=== PATIENT | male | born 1940 | race Caucasian/White ===

== ENCOUNTER → 2016-11-01 | Outpatient (CLI) | payer BC ==
[~2016-11-01] MED LIST: CALC-20 PO; LEVO112T2 PO; LISI20TA3 PO; WARF5TAB90 PO; [UNRECOGNIZED DRUG - CODE] PO
[2016-11-01 15:17] LABS: % FREE PSA 25.7 %; FREE PSA 1.24 ng/ml; PROSTATE SPECIFIC ANTIGEN 4.82 ng/ml (0.000-4.000)
== END | disposition home or self-care (01) ==
LOC: C.LAB1850 13:43
PROVIDERS: ATTEND Urology
DX: R97.20 Elevated prostate specific antigen [PSA] (principal)

== ENCOUNTER → 2017-05-11 | Outpatient (CLI) | payer BC ==
[~2017-05-11] MED LIST changes: +OPTIRAY 320 IV PRN
--- NOTE | 2017-05-11 13:24 | DIAGNOSTIC IMAGING REPORT ---
CT ABD/PELVIS IV AND ORAL CONT CLINICAL HISTORY: ANEMIA WEIGHT LOSS, ELEVATED PSA COMPARISON STUDY: None. TECHNIQUE: Following the IV administration of 94 mL of Optiray-320, CT scan of the abdomen and pelvis was performed from the lung bases to the proximal femurs. Images are reviewed in the axial, sagittal, and coronal planes. IV contrast was administered without complication. A dose lowering technique was utilized adhering to the principles of ALARA. CT DOSE: 598.92 mGycm FINDINGS: Lower chest: The heart is normal in size and configuration, without pericardial effusion. The lung bases and pleural spaces are clear. Liver: There is a 9 mm left lobe hepatic cyst. Gallbladder: Surgically absent Spleen: Normal in size and attenuation. Pancreas: Unremarkable. Adrenal glands: Unremarkable. Kidneys: There is symmetric renal cortical enhancement. The kidneys are normal in size without hydronephrosis. Bowel: There are no transition zone to indicate bowel obstruction. The appendix appears normal. There is colonic diverticulosis. No acute peridiverticular inflammatory changes are visualized. There is moderate stool present throughout the colon. Peritoneum: There is no intraperitoneal free air or abdominal ascites. Vasculature: The abdominal aorta is normal in course and caliber. Adenopathy: None. Pelvic viscera: There is mild bladder distention. Prostate is enlarged measuring 6.5 cm in diameter. Skeletal structures: There is bilateral L5 spondylolysis. There is a grade 1 spondylolisthesis of L5 on S1. IMPRESSION: 1. Prostamegaly 2. No evidence of bowel obstruction. No evidence of free air 3. Normal appendix 4. No evidence of pathologic adenopathy Electronically signed by: Wilber Rae M.D. 05/11/2017 1:23 PM Dictated Date/Time: 05/11/2017 1:16 PM
== END | disposition home or self-care (01) ==
LOC: C.CTS 10:24
PROVIDERS: ATTEND Family Medicine
DX: R63.4 Abnormal weight loss (principal); R97.20 Elevated prostate specific antigen [PSA]; D64.9 Anemia, unspecified; N40.0 Benign prostatic hyperplasia without lower urinary tract symptoms

== ENCOUNTER → 2017-05-19 | Outpatient (CLI) | payer BC ==
[~2017-05-19] MED LIST changes: -OPTIRAY 320 IV PRN
--- NOTE | 2017-05-19 13:44 | DIAGNOSTIC IMAGING REPORT ---
CHEST 2 VIEWS ROUTINE CLINICAL HISTORY: 77 years-old Male presenting with ANEMIA, WEIGHT LOSS. TECHNIQUE: PA and lateral views of the chest were obtained. COMPARISON: 08/28/2006. FINDINGS: Median sternotomy wires Lungs and pleural spaces clear. Osseous structures normal. Upper abdomen normal. IMPRESSION: 1. No acute cardiopulmonary disease. Electronically signed by: Heber Ro M.D. 05/19/2017 1:42 PM Dictated Date/Time: 05/19/2017 1:36 PM
== END | disposition home or self-care (01) ==
LOC: C.RAD 13:16
PROVIDERS: ATTEND Family Medicine
DX: D64.9 Anemia, unspecified (principal); R63.4 Abnormal weight loss

== ENCOUNTER → 2017-06-01 | Outpatient (CLI) | payer BC | END | disposition home or self-care (01) | LOC: C.PATHSPEC 18:18 | PROVIDERS: ATTEND Urology | DX: R97.20 Elevated prostate specific antigen [PSA] (principal) ==

== ENCOUNTER → 2017-06-15 | Outpatient (CLI) | payer BC ==
--- NOTE | 2017-06-15 12:27 | DIAGNOSTIC IMAGING REPORT ---
Thyroid ultrasonography CLINICAL HISTORY: Palpable neck mass COMPARISON STUDY: No previous studies for comparison. FINDINGS: The right lobe of thyroid measures 49 x 14 x 21 mm. There are 2 mid pole cysts each of which measures 6 mm in long axis. The left lobe measures 48 x 11 x 17 mm. There is a 7 mm mid pole cyst. There is a 5 mm spongiform lower pole thyroid nodule. IMPRESSION: Multinodular thyroid gland. None of the nodules meet biopsy criteria. Electronically signed by: Wilber Rae M.D. 06/15/2017 12:26 PM Dictated Date/Time: 06/15/2017 12:24 PM
== END | disposition home or self-care (01) ==
LOC: C.ULTR 11:31
PROVIDERS: ATTEND Family Medicine
DX: R22.1 Localized swelling, mass and lump, neck (principal); E04.2 Nontoxic multinodular goiter

== ENCOUNTER → 2017-07-07 | Outpatient (CLI) | payer BC ==
[~2017-07-07] MED LIST changes: +GADAVIST IV PRN
--- NOTE | 2017-07-07 10:29 | DIAGNOSTIC IMAGING REPORT ---
BRAIN COMBO CLINICAL HISTORY: HX OF MELANOMA,WEIGHT LOSS mental status change COMPARISON STUDY: No previous studies for comparison. TECHNIQUE: Utilizing a 1.5 Jeana magnet and dedicated coil, multiplanar, multiecho imaging of the brain was performed pre and postcontrast administration. IV administration of 7 mL of Gadavist contrast was uneventful. FINDINGS: Findings of mild cerebellar as well as cerebral atrophy. Moderate chronic small vessel change throughout the periventricular and deep white matter regions. Diffusion images show no significant acute ischemic event. Postcontrast images are negative for an enhancing lesion. IMPRESSION: Age-related atrophy and chronic small vessel change. No acute process. No abnormal postcontrast enhancement. The above report was generated using voice recognition software. It may contain grammatical, syntax or spelling errors. Electronically signed by: Kvng Amaro M.D. 07/07/2017 10:27 AM Dictated Date/Time: 07/07/2017 10:24 AM
== END | disposition home or self-care (01) ==
LOC: C.MRI 09:33
PROVIDERS: ATTEND Dermatology
DX: G31.1 Senile degeneration of brain, not elsewhere classified (principal); I67.9 Cerebrovascular disease, unspecified; Z87.898 Personal history of other specified conditions; R63.4 Abnormal weight loss

== ENCOUNTER 2022-09-01 14:29 | Inpatient (IN) ==
[2022-09-01] MEDS ORDERED: ADENOSINE IV SOLN 3 MG/ML 2 ML VIAL IV STA (14:46)
[2022-09-01] MEDS ORDERED: SODIUM CHLORIDE 0.9% 500 ML IV STA (14:46)
[2022-09-01] MEDS ORDERED: ONDANSETRON INJ 2 MG/ML 2 ML VIAL ONE (14:56)
[2022-09-01] MEDS: ETOMIDATE 2 MG/ML 20 ML VIAL IV ONE ×2 (15:00→15:37)
[2022-09-01 15:04] LABS: iSTAT Creatinine 0.9 mg/dl (0.6-1.3); iSTAT Ionized Calcium 1.16 mmol/l (1.12-1.32); iSTAT Potassium 4.2 mmol/L (3.3-5.0)
[2022-09-01 15:06] LABS: Basophils # (auto) 0.15 K/uL (0-0.2); Basophils % (auto) 1.2 %; Eosinophils # (auto) 0.27 K/uL (0-0.50); Eosinophils % (auto) 2.2 %; Hematocrit (blood only) 41.6 % (42.0-52.0); Immature Granulocytes # (auto) 0.15 K/uL (0.01-0.20); Immature Granulocytes % (auto) 1.2 %; Lymphocytes # (auto) 2.77 K/uL (1.2-3.4); Lymphocytes % (auto) 22.8 %; Mean Corpuscular Hemoglobin 29.4 pg (25.0-34.0); Mean Corpuscular Hgb Conc 33.7 g/dL (32.0-36.0); Mean Corpuscular Volume 87.2 fL (80.0-100.0); Mean Platelet Volume 10.5 fL (9.4-12.4); Monocytes # (auto) 0.93 K/uL (0.11-0.59); Monocytes % (auto) 7.7 %; Neutrophils # (auto) 7.87 K/uL (1.40-6.50); Neutrophils % (auto) 64.9 %; Platelet Count 268 K/uL (130-400); RDW Coefficient of Variation 13.7 % (11.5-14.5); Red Blood Count 4.77 M/uL (4.70-6.10); White Blood Count 12.14 K/ul (4.8-10.8)
--- NOTE | 2022-09-01 15:10 | Emergency Department Note ---
Impression & Plan Ventricular tachycardia, Abnormal EKG, LUCAS (dyspnea on exertion) ED Provider Note NAME: CHRIST RAYMUNDO AGE: 82 SEX: M : 1940 ARRIVES VIA: Walk-In INFORMANT: Patient, ED PROVIDER(S): Adan Avery DO CHIEF COMPLAINT: Palpitations HPI: The patient is an 82-year-old male who presented to the emergency department for an evaluation of palpitations and shortness of breath with exertion. The patient states for the last few weeks he has been noticing some shortness of breath with exertion. It occurred when he was carrying a laundry basket up stairs today while he was mowing grass he started noticing for about the last hour that he was having trouble with dizziness and near syncope. He also noted shortness of breath and palpitations. He came to the emergency department with his friend who he was helping with yard work. The patient was brought directly from triage into room 81 because of tachycardia and nausea and vomiting. The patient at this time denies having any chest pain. He had no lower extremity swelling. He states has been compliant with his outpatient medications which do include a blood thinner. ROS: See above HPI for pertinent positives & negatives. A total of 10 systems reviewed and were otherwise negative. PAST MEDICAL HISTORY: See Below PAST SURGICAL HISTORY: See Below FAMILY HISTORY: See Below SOCIAL HISTORY: See Below HOME MEDICATIONS: See Below ALLERGIES: See Below VITALS: See Below PHYSICAL EXAMINATION: GENERAL: The patient is awake and alert. He is very anxious. EYES: The conjunctivae are clear. The pupils are round and reactive. EARS, NOSE, MOUTH AND THROAT: The nose is without any evidence of any deformity. NECK: The neck is nontender and supple. RESPIRATORY: Normal respiratory effort is noted there is no evidence of wheezing rhonchi or rales CARDIOVASCULAR: Tachycardic and regular heart sounds were noted to auscultation. No murmur was noted. GASTROINTESTINAL: The abdomen is soft. Abdomen is nontender. MUSCULOSKELETAL/EXTREMITIES: There is no evidence of gross deformity full range of motion is noted in the hips and shoulders. SKIN: There is no obvious evidence of any rash. There are no petechiae, pallor or cyanosis noted. NEUROLOGIC: Patient is awake alert and oriented x3 MEDICAL DECISION MAKING: The patient is an 82-year-old male who does have a history of coronary artery disease as well as coronary bypass who presented to the emergency department for an evaluation of not feeling well. The patient was brought directly back from triage to a resuscitation room. He was hypotensive and tachycardic. He was found to be in wide-complex tachycardia. Initially he was trialed on Valsalva maneuver adenosine and IV fluids but his pressure dropped and he started having worsening nausea and vomiting. For this reason he was felt to be unstable and preparations were made to cardiovert the patient using sedation. He was given etomidate. He was monitored in usual fashion. He was cardioverted using 200 J with synchronized cardioversion. He tolerated this quite well. The patient was reevaluated multiple times. I discussed the patient's laboratory and radiographic studies with him. He was treated with aspirin as well as amiodarone in the emergency department. I discussed his condition with the on- call [facility] skidder operator. Preparations were made to transfer the patient to [facility]. Given his comorbid conditions likelihood of him needing intervention as well as possible further bypass was high. Unfortunately we are unable to accommodate the patient's transfer at this time. He will be admitted by the [facility] hospitalist group. Triage Nursing notes reviewed. Prior medical records reviewed Vital Signs: reviewed and remarkable for no significant abnormalities Differential diagnosis: Reactive airway disease, pneumonia, pneumothorax, COPD, CHF, infections, cardiac ischemia, pulmonary embolism, musculoskeletal, gastrointestinal, as well as other pathologies. ER treatment provided: See below Diagnostics interpreted by me: ECG: EKG was obtained in the emergency department. My interpretation is wide- complex tachycardia at 215 bpm. A left bundle branch block pattern was favored. Diffuse ST segment abnormalities were noted. This was compared to a tracing from April 20, 2020. Sinus rhythm has been replaced with wide-complex tachycardia. A second EKG was obtained in the emergency department after cardioversion. My interpretation is atrial paced rhythm with ventricular sensing at 72 bpm. No PVCs were noted. Diffuse ST depressions were noted. This was compared to a tracing from April 20, 2020. The ST depression is new compared to previous tracing. Cardiac Monitoring: An order was placed for continuous cardiac monitoring. The monitor shows a rate of 61 bpm with paced rhythm. Laboratory studies: As stated above and show below. Imaging studies: See below. Radiographic imaging was reviewed by myself Consultation(s): I discussed this case with Dr. Reeves who is on-call for the [facility] skidder operator group. He will evaluate the patient in the emergency department. Dr. Boucher was notified about the patient. She will evaluate the patient for the [facility] hospitalist group. ED COURSE: Procedures: Indication: Wide-complex tachycardia, unstable Verbal consent was obtained after the risks and benefits were explained, including but not limited to pain, thermal burn, allergic reaction, aspiration, airway obstruction, laryngospasm, infection, hypotension, and cardiorespiratory arrest. At this time, the risks of the procedure are less than the risks of NOT performing the procedure. A time out was taken and the correct patient and procedure identified. The patient was on 100% via NRB and end tidal CO2 monitoring prior to the procedure. Suction, airway equipment, medications, respiratory equipment, ACLS cart, and appropriate personnel were prepared prior to the initiation of the procedure. Sedation was achieved utilizing etomidate. The biphasic defibrillator was set to 200 joules of energy and synched. After confirmation of sedation and "all clear" safety check the synchronized shock was delivered. This resulted in successful conversion of the dysrhythmia back into sinus rhythm. See nursing notes for dosages and times. There were no complications and the patient recovered uneventfully from the procedure. Critical Care: I have personally spent greater than 45 minutes of critical care time in the direct management of this patient. This includes bedside care, interpretation of diagnostic studies, and testing, discussion with consultants, patient, and family members, and other required patient management activities. This 45 minutes is in excess of all separately billable procedures. Past Med/Surg History Medical History Aortic aneurysm next echo is 12/01/22>Dr. Dunham monitoring Benign prostatic hyperplasia with urinary obstruction CAD (coronary artery disease) Follows with Dr. Dunham Cardiac murmur Dupuytren's disease Erectile dysfunction GERD (gastroesophageal reflux disease) History of gastric ulcer History of GI bleed History of melanoma History of myocardial infarction 1989 Hx of cardiac pacemaker 04/2021, [facility]; F/U DR. DUNHAM, S Hyperlipidemia Hypertension Hypothyroidism Intracardiac thrombus CURRENTLY ON COUMADIN On warfarin therapy Osteoarthritis Surgical History History of arthroscopy of right knee History of cardiac catheterization 1989, DONE AT [facility] IN [place], NO STENTS--> CABG History of cholecystectomy History of colonoscopy History of esophagogastroduodenoscopy (EGD) History of hand surgery Left x 2 History of hernia repair History of melanoma excision History of partial gastrectomy History of quadruple bypass 1989, [facility] IN [place]; F/U DR. DUNHAM, [employer] [facility] History of right knee joint replacement Hx of bilateral cataract extraction Hx of cystoscopy YEARS AGO FOR HEMATURIA Family History Father No problems noted. 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 Beliefs That Will Affect Care: None Current Living Situation: Spouse Other Information That Helps Us Care for You: No Feels Safe at Home: Yes Safety Concerns: Feels Safe At This Time Assistive Devices: Denture - Upper, Denture - Lower and Glasses Allergies Allergies Allergy/AdvReac Type Severity Reaction Status Date / Time No Known Allergies Allergy Verified 09/01/22 17:31 Home Meds Home Medications Medication Instructions Recorded Confirmed amlodipine 5 mg tablet 5 mg PO QAM 07/01/19 09/01/22 multivitamin (Daily Multi-Vitamin 1 tab PO QPM 07/01/19 09/01/22 tablet) warfarin 5 mg tablet 5 mg PO 5XWK 07/01/19 09/01/22 rosuvastatin 40 mg tablet (Crestor) 40 mg PO QPM 06/03/20 09/01/22 levothyroxine 112 mcg tablet 112 mcg PO DAILYBB 05/09/21 09/01/22 (Synthroid) metoprolol succinate 50 mg 50 mg PO QPM 05/09/21 09/01/22 tablet,extended release 24 hr (Toprol XL) calcium carbonate 600 mg-vitamin 1 tab PO DAILY 09/01/22 09/01/22 D3 5 mcg (200 unit) tablet (Calcium 600 + D(3)) losartan 25 mg tablet 25 mg PO DAILY 09/01/22 09/01/22 warfarin 5 mg tablet 2.5 mg PO 2XWK 09/01/22 09/01/22 Results & Data (ED) Vital Signs Vital Signs - 24 hr 09/01/22 14:32 09/01/22 14:50 09/01/22 14:56 Temperature 36.8 C Temperature Source Temporal Artery Scan Pulse Rate 222 H 195 H Pulse Rate [Apical] Pulse Rate from SpO2 Sensor Pulse Rhythm [Apical] Respiratory Rate 20 Respiratory Effort / Characteristics Non-Labored Spontaneous Respiratory Depth Normal Respiratory Pattern Regular Blood Pressure Blood Pressure [Left Arm] Blood Pressure Mean Blood Pressure Mean [Left Arm] Pulse Oximetry 98 Oxygen Delivery Method Room Air Oxygen Flow Rate Sepsis Recent Fever Within 48 Hours No Sepsis New/Unexplained Change in Mental Status No Sepsis Action Taken by Nursing No Action Required Oxygen Flow Rate - Titration 2 Pulse Oximetry Post Tiitration 99 09/01/22 14:56 09/01/22 15:01 09/01/22 15:04 Temperature Temperature Source Pulse Rate 209 H 130 H Pulse Rate [Apical] 70 Pulse Rate from SpO2 Sensor Pulse Rhythm [Apical] Regular Respiratory Rate 16 Respiratory Effort / Characteristics Non-Labored Respiratory Depth Normal Respiratory Pattern Blood Pressure Blood Pressure [Left Arm] 127/90 Blood Pressure Mean Blood Pressure Mean [Left Arm] 102 Pulse Oximetry 100 Oxygen Delivery Method Nasal Cannula Oxygen Flow Rate 4 Sepsis Recent Fever Within 48 Hours Sepsis New/Unexplained Change in Mental Status Sepsis Action Taken by Nursing Oxygen Flow Rate - Titration Pulse Oximetry Post Tiitration 09/01/22 14:47 09/01/22 14:50 09/01/22 14:51 Temperature Temperature Source Pulse Rate 153 H 216 H 214 H Pulse Rate [Apical] Pulse Rate from SpO2 Sensor Pulse Rhythm [Apical] Respiratory Rate 18 24 18 Respiratory Effort / Characteristics Respiratory Depth Respiratory Pattern Blood Pressure Blood Pressure [Left Arm] Blood Pressure Mean Blood Pressure Mean [Left Arm] Pulse Oximetry Oxygen Delivery Method Oxygen Flow Rate Sepsis Recent Fever Within 48 Hours Sepsis New/Unexplained Change in Mental Status Sepsis Action Taken by Nursing Oxygen Flow Rate - Titration Pulse Oximetry Post Tiitration 09/01/22 14:51 09/01/22 14:55 09/01/22 14:56 Temperature Temperature Source Pulse Rate 210 H 208 H Pulse Rate [Apical] Pulse Rate from SpO2 Sensor 200 H Pulse Rhythm [Apical] Respiratory Rate 13 20 Respiratory Effort / Characteristics Respiratory Depth Respiratory Pattern Blood Pressure 70/55 L Blood Pressure [Left Arm] Blood Pressure Mean 60 Blood Pressure Mean [Left Arm] Pulse Oximetry 97 Oxygen Delivery Method Oxygen Flow Rate Sepsis Recent Fever Within 48 Hours Sepsis New/Unexplained Change in Mental Status Sepsis Action Taken by Nursing Oxygen Flow Rate - Titration Pulse Oximetry Post Tiitration 09/01/22 14:56 09/01/22 15:00 09/01/22 15:00 Temperature Temperature Source Pulse Rate 98 H Pulse Rate [Apical] Pulse Rate from SpO2 Sensor 98 H Pulse Rhythm [Apical] Respiratory Rate 20 Respiratory Effort / Characteristics Respiratory Depth Respiratory Pattern Blood Pressure 57/43 L 127/90 Blood Pressure [Left Arm] Blood Pressure Mean 47 102 Blood Pressure Mean [Left Arm] Pulse Oximetry 99 Oxygen Delivery Method Oxygen Flow Rate 4 Sepsis Recent Fever Within 48 Hours Sepsis New/Unexplained Change in Mental Status Sepsis Action Taken by Nursing Oxygen Flow Rate - Titration Pulse Oximetry Post Tiitration 09/01/22 15:05 09/01/22 15:05 09/01/22 15:10 Temperature Temperature Source Pulse Rate 74 Pulse Rate [Apical] Pulse Rate from SpO2 Sensor 74 Pulse Rhythm [Apical] Respiratory Rate 13 Respiratory Effort / Characteristics Respiratory Depth Respiratory Pattern Blood Pressure 125/80 123/79 Blood Pressure [Left Arm] Blood Pressure Mean 95 93 Blood Pressure Mean [Left Arm] Pulse Oximetry 100 Oxygen Delivery Method Oxygen Flow Rate 4 Sepsis Recent Fever Within 48 Hours Sepsis New/Unexplained Change in Mental Status Sepsis Action Taken by Nursing Oxygen Flow Rate - Titration Pulse Oximetry Post Tiitration 09/01/22 15:10 09/01/22 15:15 09/01/22 15:15 Temperature Temperature Source Pulse Rate 60 60 Pulse Rate [Apical] Pulse Rate from SpO2 Sensor 61 60 Pulse Rhythm [Apical] Respiratory Rate 18 10 L Respiratory Effort / Characteristics Respiratory Depth Respiratory Pattern Blood Pressure 115/74 Blood Pressure [Left Arm] Blood Pressure Mean 87 Blood Pressure Mean [Left Arm] Pulse Oximetry 100 100 Oxygen Delivery Method Oxygen Flow Rate 4 4 Sepsis Recent Fever Within 48 Hours Sepsis New/Unexplained Change in Mental Status Sepsis Action Taken by Nursing Oxygen Flow Rate - Titration Pulse Oximetry Post Tiitration 09/01/22 15:20 09/01/22 15:20 09/01/22 15:25 Temperature Temperature Source Pulse Rate 67 Pulse Rate [Apical] Pulse Rate from SpO2 Sensor 67 Pulse Rhythm [Apical] Respiratory Rate 16 Respiratory Effort / Characteristics Respiratory Depth Respiratory Pattern Blood Pressure 114/77 134/85 Blood Pressure [Left Arm] Blood Pressure Mean 89 101 Blood Pressure Mean [Left Arm] Pulse Oximetry 100 Oxygen Delivery Method Oxygen Flow Rate 2 Sepsis Recent Fever Within 48 Hours Sepsis New/Unexplained Change in Mental Status Sepsis Action Taken by Nursing Oxygen Flow Rate - Titration Pulse Oximetry Post Tiitration 09/01/22 15:25 09/01/22 15:30 09/01/22 15:30 Temperature Temperature Source Pulse Rate 61 60 Pulse Rate [Apical] Pulse Rate from SpO2 Sensor 60 60 Pulse Rhythm [Apical] Respiratory Rate 17 19 Respiratory Effort / Characteristics Respiratory Depth Respiratory Pattern Blood Pressure 137/78 Blood Pressure [Left Arm] Blood Pressure Mean 97 Blood Pressure Mean [Left Arm] Pulse Oximetry 100 100 Oxygen Delivery Method Oxygen Flow Rate 2 2 Sepsis Recent Fever Within 48 Hours Sepsis New/Unexplained Change in Mental Status Sepsis Action Taken by Nursing Oxygen Flow Rate - Titration Pulse Oximetry Post Tiitration 09/01/22 15:35 09/01/22 15:35 09/01/22 15:40 Temperature Temperature Source Pulse Rate 60 Pulse Rate [Apical] Pulse Rate from SpO2 Sensor 60 Pulse Rhythm [Apical] Respiratory Rate 18 Respiratory Effort / Characteristics Respiratory Depth Respiratory Pattern Blood Pressure 134/77 138/74 Blood Pressure [Left Arm] Blood Pressure Mean 96 95 Blood Pressure Mean [Left Arm] Pulse Oximetry 100 Oxygen Delivery Method Oxygen Flow Rate 2 Sepsis Recent Fever Within 48 Hours Sepsis New/Unexplained Change in Mental Status Sepsis Action Taken by Nursing Oxygen Flow Rate - Titration Pulse Oximetry Post Tiitration 09/01/22 15:40 09/01/22 15:45 09/01/22 15:45 Temperature Temperature Source Pulse Rate 68 63 Pulse Rate [Apical] Pulse Rate from SpO2 Sensor 68 64 Pulse Rhythm [Apical] Respiratory Rate 17 17 Respiratory Effort / Characteristics Respiratory Depth Respiratory Pattern Blood Pressure 135/69 Blood Pressure [Left Arm] Blood Pressure Mean 91 Blood Pressure Mean [Left Arm] Pulse Oximetry 99 100 Oxygen Delivery Method Oxygen Flow Rate 2 2 Sepsis Recent Fever Within 48 Hours Sepsis New/Unexplained Change in Mental Status Sepsis Action Taken by Nursing Oxygen Flow Rate - Titration Pulse Oximetry Post Tiitration 09/01/22 15:50 09/01/22 15:50 09/01/22 15:55 Temperature Temperature Source Pulse Rate 64 Pulse Rate [Apical] Pulse Rate from SpO2 Sensor 60 Pulse Rhythm [Apical] Respiratory Rate 17 Respiratory Effort / Characteristics Respiratory Depth Respiratory Pattern Blood Pressure 135/77 134/73 Blood Pressure [Left Arm] Blood Pressure Mean 96 93 Blood Pressure Mean [Left Arm] Pulse Oximetry 98 Oxygen Delivery Method Oxygen Flow Rate 2 Sepsis Recent Fever Within 48 Hours Sepsis New/Unexplained Change in Mental Status Sepsis Action Taken by Nursing Oxygen Flow Rate - Titration Pulse Oximetry Post Tiitration 09/01/22 15:55 09/01/22 16:00 09/01/22 16:01 Temperature Temperature Source Pulse Rate 66 61 Pulse Rate [Apical] Pulse Rate from SpO2 Sensor 66 61 Pulse Rhythm [Apical] Respiratory Rate 24 14 Respiratory Effort / Characteristics Respiratory Depth Respiratory Pattern Blood Pressure 122/77 Blood Pressure [Left Arm] Blood Pressure Mean 92 Blood Pressure Mean [Left Arm] Pulse Oximetry 100 100 Oxygen Delivery Method Oxygen Flow Rate 2 2 Sepsis Recent Fever Within 48 Hours Sepsis New/Unexplained Change in Mental Status Sepsis Action Taken by Nursing Oxygen Flow Rate - Titration Pulse Oximetry Post Tiitration 09/01/22 16:01 09/01/22 16:05 09/01/22 16:05 Temperature Temperature Source Pulse Rate 61 60 Pulse Rate [Apical] Pulse Rate from SpO2 Sensor 62 60 Pulse Rhythm [Apical] Respiratory Rate 22 15 Respiratory Effort / Characteristics Respiratory Depth Respiratory Pattern Blood Pressure 123/66 Blood Pressure [Left Arm] Blood Pressure Mean 85 Blood Pressure Mean [Left Arm] Pulse Oximetry 100 100 Oxygen Delivery Method Oxygen Flow Rate 2 2 Sepsis Recent Fever Within 48 Hours Sepsis New/Unexplained Change in Mental Status Sepsis Action Taken by Nursing Oxygen Flow Rate - Titration Pulse Oximetry Post Tiitration 09/01/22 16:10 09/01/22 16:10 09/01/22 16:15 Temperature Temperature Source Pulse Rate 61 Pulse Rate [Apical] Pulse Rate from SpO2 Sensor 60 Pulse Rhythm [Apical] Respiratory Rate 13 Respiratory Effort / Characteristics Respiratory Depth Respiratory Pattern Blood Pressure 114/67 127/65 Blood Pressure [Left Arm] Blood Pressure Mean 82 85 Blood Pressure Mean [Left Arm] Pulse Oximetry 100 Oxygen Delivery Method Oxygen Flow Rate 2 Sepsis Recent Fever Within 48 Hours Sepsis New/Unexplained Change in Mental Status Sepsis Action Taken by Nursing Oxygen Flow Rate - Titration Pulse Oximetry Post Tiitration 09/01/22 16:15 09/01/22 16:20 09/01/22 16:20 Temperature Temperature Source Pulse Rate 60 60 Pulse Rate [Apical] Pulse Rate from SpO2 Sensor 60 60 Pulse Rhythm [Apical] Respiratory Rate 16 20 Respiratory Effort / Characteristics Respiratory Depth Respiratory Pattern Blood Pressure 129/65 Blood Pressure [Left Arm] Blood Pressure Mean 86 Blood Pressure Mean [Left Arm] Pulse Oximetry 100 100 Oxygen Delivery Method Oxygen Flow Rate 2 2 Sepsis Recent Fever Within 48 Hours Sepsis New/Unexplained Change in Mental Status Sepsis Action Taken by Nursing Oxygen Flow Rate - Titration Pulse Oximetry Post Tiitration 09/01/22 16:25 09/01/22 16:25 09/01/22 16:30 Temperature Temperature Source Pulse Rate 60 Pulse Rate [Apical] Pulse Rate from SpO2 Sensor 60 Pulse Rhythm [Apical] Respiratory Rate 18 Respiratory Effort / Characteristics Respiratory Depth Respiratory Pattern Blood Pressure 119/69 121/64 Blood Pressure [Left Arm] Blood Pressure Mean 85 83 Blood Pressure Mean [Left Arm] Pulse Oximetry 99 Oxygen Delivery Method Oxygen Flow Rate 2 Sepsis Recent Fever Within 48 Hours Sepsis New/Unexplained Change in Mental Status Sepsis Action Taken by Nursing Oxygen Flow Rate - Titration Pulse Oximetry Post Tiitration 09/01/22 16:30 09/01/22 16:35 09/01/22 16:36 Temperature Temperature Source Pulse Rate 60 60 60 Pulse Rate [Apical] Pulse Rate from SpO2 Sensor 60 60 60 Pulse Rhythm [Apical] Respiratory Rate 18 17 19 Respiratory Effort / Characteristics Respiratory Depth Respiratory Pattern Blood Pressure Blood Pressure [Left Arm] Blood Pressure Mean Blood Pressure Mean [Left Arm] Pulse Oximetry 100 100 100 Oxygen Delivery Method Oxygen Flow Rate 2 2 2 Sepsis Recent Fever Within 48 Hours Sepsis New/Unexplained Change in Mental Status Sepsis Action Taken by Nursing Oxygen Flow Rate - Titration Pulse Oximetry Post Tiitration 09/01/22 16:36 09/01/22 16:40 09/01/22 16:41 Temperature Temperature Source Pulse Rate 61 61 Pulse Rate [Apical] Pulse Rate from SpO2 Sensor 60 62 Pulse Rhythm [Apical] Respiratory Rate 18 22 Respiratory Effort / Characteristics Respiratory Depth Respiratory Pattern Blood Pressure 116/71 Blood Pressure [Left Arm] Blood Pressure Mean 86 Blood Pressure Mean [Left Arm] Pulse Oximetry 100 100 Oxygen Delivery Method Oxygen Flow Rate 2 2 Sepsis Recent Fever Within 48 Hours Sepsis New/Unexplained Change in Mental Status Sepsis Action Taken by Nursing Oxygen Flow Rate - Titration Pulse Oximetry Post Tiitration 09/01/22 16:41 09/01/22 16:45 09/01/22 16:45 Temperature Temperature Source Pulse Rate 60 Pulse Rate [Apical] Pulse Rate from SpO2 Sensor 60 Pulse Rhythm [Apical] Respiratory Rate 13 Respiratory Effort / Characteristics Respiratory Depth Respiratory Pattern Blood Pressure 119/59 L 130/64 Blood Pressure [Left Arm] Blood Pressure Mean 79 86 Blood Pressure Mean [Left Arm] Pulse Oximetry 100 Oxygen Delivery Method Oxygen Flow Rate 2 Sepsis Recent Fever Within 48 Hours Sepsis New/Unexplained Change in Mental Status Sepsis Action Taken by Nursing Oxygen Flow Rate - Titration Pulse Oximetry Post Tiitration 09/01/22 16:50 09/01/22 16:50 09/01/22 16:55 Temperature Temperature Source Pulse Rate 60 60 Pulse Rate [Apical] Pulse Rate from SpO2 Sensor 59 L 60 Pulse Rhythm [Apical] Respiratory Rate 18 17 Respiratory Effort / Characteristics Respiratory Depth Respiratory Pattern Blood Pressure 112/66 Blood Pressure [Left Arm] Blood Pressure Mean 81 Blood Pressure Mean [Left Arm] Pulse Oximetry 100 100 Oxygen Delivery Method Room Air Oxygen Flow Rate 2 Sepsis Recent Fever Within 48 Hours Sepsis New/Unexplained Change in Mental Status Sepsis Action Taken by Nursing Oxygen Flow Rate - Titration Pulse Oximetry Post Tiitration 09/01/22 16:55 09/01/22 17:00 09/01/22 17:00 Temperature Temperature Source Pulse Rate 60 Pulse Rate [Apical] Pulse Rate from SpO2 Sensor 60 Pulse Rhythm [Apical] Respiratory Rate 16 Respiratory Effort / Characteristics Respiratory Depth Respiratory Pattern Blood Pressure 131/71 115/73 Blood Pressure [Left Arm] Blood Pressure Mean 91 87 Blood Pressure Mean [Left Arm] Pulse Oximetry 98 Oxygen Delivery Method Oxygen Flow Rate Sepsis Recent Fever Within 48 Hours Sepsis New/Unexplained Change in Mental Status Sepsis Action Taken by Nursing Oxygen Flow Rate - Titration Pulse Oximetry Post Tiitration 09/01/22 17:05 09/01/22 17:10 09/01/22 17:15 Temperature Temperature Source Pulse Rate 60 62 Pulse Rate [Apical] Pulse Rate from SpO2 Sensor 60 60 Pulse Rhythm [Apical] Respiratory Rate 12 20 Respiratory Effort / Characteristics Respiratory Depth Respiratory Pattern Blood Pressure 123/70 Blood Pressure [Left Arm] Blood Pressure Mean 87 Blood Pressure Mean [Left Arm] Pulse Oximetry 99 98 Oxygen Delivery Method Oxygen Flow Rate Sepsis Recent Fever Within 48 Hours Sepsis New/Unexplained Change in Mental Status Sepsis Action Taken by Nursing Oxygen Flow Rate - Titration Pulse Oximetry Post Tiitration 09/01/22 17:15 09/01/22 17:20 09/01/22 17:25 Temperature Temperature Source Pulse Rate 62 61 60 Pulse Rate [Apical] Pulse Rate from SpO2 Sensor 62 61 60 Pulse Rhythm [Apical] Respiratory Rate 14 14 19 Respiratory Effort / Characteristics Respiratory Depth Respiratory Pattern Blood Pressure Blood Pressure [Left Arm] Blood Pressure Mean Blood Pressure Mean [Left Arm] Pulse Oximetry 99 99 99 Oxygen Delivery Method Room Air Oxygen Flow Rate Sepsis Recent Fever Within 48 Hours Sepsis New/Unexplained Change in Mental Status Sepsis Action Taken by Nursing Oxygen Flow Rate - Titration Pulse Oximetry Post Tiitration 09/01/22 17:30 09/01/22 17:30 09/01/22 17:35 Temperature Temperature Source Pulse Rate 60 60 Pulse Rate [Apical] Pulse Rate from SpO2 Sensor 60 60 Pulse Rhythm [Apical] Respiratory Rate 21 14 Respiratory Effort / Characteristics Respiratory Depth Respiratory Pattern Blood Pressure 129/75 Blood Pressure [Left Arm] Blood Pressure Mean 93 Blood Pressure Mean [Left Arm] Pulse Oximetry 97 94 Oxygen Delivery Method Oxygen Flow Rate Sepsis Recent Fever Within 48 Hours Sepsis New/Unexplained Change in Mental Status Sepsis Action Taken by Nursing Oxygen Flow Rate - Titration Pulse Oximetry Post Tiitration Home Medications Current Medication List: was personally reviewed by me Laboratory Data Attestation: I reviewed the patient's lab results. 09/01/22 14:45 09/01/22 14:45 Lab Results 09/01/22 09/01/22 09/01/22 Range/Units 14:45 14:45 14:45 WBC 12.14 H (4.8-10.8) K/ul RBC 4.77 (4.70-6.10) M/uL Hgb 14.0 (14.0-18.0) g/dl POC Hgb (14.0-18.0) g/dl Hct 41.6 L (42.0-52.0) % POC Hct (42-52) % MCV 87.2 (80.0-100.0) fL MCH 29.4 (25.0-34.0) pg MCHC 33.7 (32.0-36.0) g/dL RDW Std Deviation 44.0 (36.4-46.3) fL RDW Coeff of Dov 13.7 (11.5-14.5) % Plt Count 268 (130-400) K/uL MPV 10.5 (9.4-12.4) fL Immature Gran % (Auto) 1.2 % Neut % (Auto) 64.9 % Lymph % (Auto) 22.8 % [place] % (Auto) 7.7 % Eos % (Auto) 2.2 % Baso % (Auto) 1.2 % Neut # (Auto) 7.87 H (1.40-6.50) K/uL Lymph # (Auto) 2.77 (1.2-3.4) K/uL [place] # (Auto) 0.93 H (0.11-0.59) K/uL Eos # (Auto) 0.27 (0-0.50) K/uL Baso # (Auto) 0.15 (0-0.2) K/uL Immature Gran # (Auto) 0.15 (0.01-0.20) K/uL PT 27.2 H (9.0-12.0) Seconds INR 2.6 H (0.9-1.1) APTT 36.5 H (21.0-31.0) Seconds PTT Ratio 1.3 POC Sodium (135-144) mmol/L Sodium 137 (136-145) mmol/L POC Potassium (3.3-5.0) mmol/L Potassium 4.2 (3.5-5.1) mmol/L POC Chloride (101-112) mmol/L Chloride 103 (98-107) mmol/L Carbon Dioxide 27 (21-32) mmol/L POC Total CO2 (24-31) mmol/L Anion Gap 7 (3-11) POC Anion Gap (16-25) mmol/L POC BUN (7-18) mg/dl BUN 20 (6-23) mg/dl Creatinine 0.93 (0.6-1.4) mg/dl POC Creatinine (0.6-1.3) mg/dl Est Cr Clr Drug Dosing 63.2 ml/min Est GFR ( Amer) 87.7 ml/min Est GFR (Non-Af Amer) 75.7 ml/min BUN/Creatinine Ratio 21.5 H (10-20) Glucose 136 H (70-99(Fasting)) mg/dl POC Glucose (other) (70-99) mg/dl Calcium 9.1 (8.6-10.3) mg/dl POC Ioniz Calcium Becca (1.12-1.32) mmol/l Magnesium 2.0 (1.7-2.4) mg/dl Total Bilirubin 0.6 (0.2-1.0) mg/dl AST 23 (13-39) U/L ALT 22 (7-52) U/L Alkaline Phosphatase 57 (34-104) U/L Troponin I High Sens 4.9 (0-20) pg/ml Total Protein 7.2 (6.0-8.3) gm/dl Albumin 4.4 (3.4-5.0) gm/dl Globulin 2.8 (2.5-4.0) gm/dl Albumin/Globulin Ratio 1.6 (0.9-2) TSH (0.300-4.500) uIu/ml Free T4 (0.61-1.60) ng/dl SARS-CoV-2, RNA, NAAT (NEGATIVE) 09/01/22 09/01/22 09/01/22 Range/Units 14:45 14:52 15:15 WBC (4.8-10.8) K/ul RBC (4.70-6.10) M/uL Hgb (14.0-18.0) g/dl POC Hgb 15.0 (14.0-18.0) g/dl Hct (42.0-52.0) % POC Hct 44 (42-52) % MCV (80.0-100.0) fL MCH (25.0-34.0) pg MCHC (32.0-36.0) g/dL RDW Std Deviation (36.4-46.3) fL RDW Coeff of Dov (11.5-14.5) % Plt Count (130-400) K/uL MPV (9.4-12.4) fL Immature Gran % (Auto) % Neut % (Auto) % Lymph % (Auto) % [place] % (Auto) % Eos % (Auto) % Baso % (Auto) % Neut # (Auto) (1.40-6.50) K/uL Lymph # (Auto) (1.2-3.4) K/uL [place] # (Auto) (0.11-0.59) K/uL Eos # (Auto) (0-0.50) K/uL Baso # (Auto) (0-0.2) K/uL Immature Gran # (Auto) (0.01-0.20) K/uL PT (9.0-12.0) Seconds INR (0.9-1.1) APTT (21.0-31.0) Seconds PTT Ratio POC Sodium 138 (135-144) mmol/L Sodium (136-145) mmol/L POC Potassium 4.2 (3.3-5.0) mmol/L Potassium (3.5-5.1) mmol/L POC Chloride 101 (101-112) mmol/L Chloride (98-107) mmol/L Carbon Dioxide (21-32) mmol/L POC Total CO2 26 (24-31) mmol/L Anion Gap (3-11) POC Anion Gap 16.0 (16-25) mmol/L POC BUN 20 H (7-18) mg/dl BUN (6-23) mg/dl Creatinine (0.6-1.4) mg/dl POC Creatinine 0.9 (0.6-1.3) mg/dl Est Cr Clr Drug Dosing ml/min Est GFR ( Amer) ml/min Est GFR (Non-Af Amer) ml/min BUN/Creatinine Ratio (10-20) Glucose (70-99(Fasting)) mg/dl POC Glucose (other) 137 H (70-99) mg/dl Calcium (8.6-10.3) mg/dl POC Ioniz Calcium Becca 1.16 (1.12-1.32) mmol/l Magnesium (1.7-2.4) mg/dl Total Bilirubin (0.2-1.0) mg/dl AST (13-39) U/L ALT (7-52) U/L Alkaline Phosphatase (34-104) U/L Troponin I High Sens (0-20) pg/ml Total Protein (6.0-8.3) gm/dl Albumin (3.4-5.0) gm/dl Globulin (2.5-4.0) gm/dl Albumin/Globulin Ratio (0.9-2) TSH 4.921 H (0.300-4.500) uIu/ml Free T4 1.02 (0.61-1.60) ng/dl SARS-CoV-2, RNA, NAAT NEGATIVE (NEGATIVE) Administered Medications Amiodarone HCl/Dextrose (Nexterone / D5w) 360 mg in 200 mls @ 16.667 mls/hr IV .Q12H TAQUERIA Stop: 10/01/22 21:29 Last Admin: 09/01/22 21:38 Dose: 0.5 mg/min, 16.7 mls/hr Documented By: MARK Co-signed By: AMB Levothyroxine Sodium (Levothyroxine Sodium 112 Mcg Tablet) 112 mcg PO DAILYBB TAQUERIA Stop: 10/02/22 06:29 Last Admin: 09/02/22 05:46 Dose: 112 mcg Documented By: VK Metoprolol Succinate (Metoprolol Succ 50mg Ext Rel Tab) 50 mg PO QPM TAQUERIA Stop: 10/01/22 20:59 Last Admin: 09/01/22 21:05 Dose: 50 mg Documented By: VK Multivitamins/Minerals (Cerovite Adv Formula Tab) 1 tab PO QPM TAQUERIA Stop: 10/01/22 20:59 Last Admin: 09/01/22 21:05 Dose: 1 tab Documented By: MARK Rosuvastatin Calcium (Rosuvastatin Calcium 20 Mg Tab) 40 mg PO QPM TAQUERIA Stop: 10/01/22 20:59 Last Admin: 09/01/22 21:05 Dose: 40 mg Documented By: MARK Discontinued Medications Adenosine (Adenosine Iv Soln 3 Mg/Ml 2 Ml Vial) 6 mg IV NOW STA Stop: 09/01/22 14:47 Last Admin: 09/01/22 14:53 Dose: 6 mg Documented By: MARGARET Amiodarone HCl (Amiodarone Iv Bolus & Drip) 1 each IV NOW STA; Protocol Stop: 09/01/22 15:25 Last Admin: 09/01/22 17:43 Dose: Not Given Documented By: QUEENIE Aspirin (Aspirin Chew 324 Mg) 324 mg PO NOW STA Stop: 09/01/22 15:25 Last Admin: 09/01/22 15:38 Dose: 324 mg Documented By: QUEENIE Etomidate (Etomidate 2 Mg/Ml 20 Ml Vial) Confirm Administered Dose 40 mg IV .STK-MED ONE Stop: 09/01/22 14:52 Last Admin: 09/01/22 15:37 Dose: Not Given Documented By: QUEENIE Etomidate (Etomidate 2 Mg/Ml 20 Ml Vial) 8 mg IV NOW STA Stop: 09/01/22 15:36 Last Admin: 09/01/22 15:00 Dose: 8 mg Documented By: QUEENIE Sodium Chloride (Nss) 500 mls @ 999 mls/hr IV .Q31M STA Stop: 09/01/22 15:16 Last Infusion: 09/01/22 15:45 Dose: 0 mls/hr Documented By: Admin: 09/01/22 14:55 Dose: 999 mls/hr Documented By: MARGARET Amiodarone HCl/Dextrose (Nexterone / D5w) 360 mg in 200 mls @ 33.333 mls/hr IV ONE ONE Stop: 09/01/22 21:34 Last Infusion: 09/01/22 21:49 Dose: 0 mg/min, 0 mls/hr Documented By: MARK Co-signed By: FREDI Admin: 09/01/22 15:48 Dose: 1 mg/min, 33.3 mls/hr Documented By: QUEENIE Co-signed By: ARNALDO Amiodarone HCl/Dextrose (Nexterone / D5w) 150 mg in 100 mls @ 600 mls/hr IV NOW STA Stop: 09/01/22 15:33 Last Infusion: 09/01/22 15:46 Dose: 0 mls/hr Documented By: QUEENIE Co-signed By: ARNALDO Admin: 09/01/22 15:34 Dose: 600 mls/hr Documented By: QUEENIE Co-signed By: ARNALDO Ondansetron HCl (Ondansetron Inj 2 Mg/Ml 2 Ml Vial) Confirm Administered Dose 4 mg .ROUTE .STK-MED ONE Stop: 09/01/22 14:57 Last Admin: 09/01/22 15:00 Dose: 4 mg Documented By: QUEENIE Imaging Data Attestation: I personally reviewed and interpreted this imaging study as follows: My Impression: 1 view chest x-ray was obtained in the emergency department. My interpretation is no free air, final report below. Radiologist's Impression: Chest X-Ray 09/01/22 14:47 XR chest 1V portable CLINICAL HISTORY: Dysrhythmia TECHNIQUE: Single frontal radiograph of the chest was obtained. Comparison: Comparison is made to chest radiograph 05/09/2021 FINDINGS: Median sternotomy wires are unchanged. Dual-lead pacemaker is seen. Cardiomegaly is noted. The lungs are clear. No evidence of pleural effusion or pneumothorax. IMPRESSION: No acute chest disease. ACT 112: Negative or not required by law. Electronically signed by: García Bradford M.D. 09/01/2022 3:28 PM Discharge Plan Visit Data Chief Complaint: Shortness of Breath/Dyspnea Stated Complaint: SHORTNESS OF BREATH,DIZZY ED Provider: Adan Avery Discharge Problem: Ventricular tachycardia, Abnormal EKG, LUCAS (dyspnea on exertion) Patient Disposition: Admitted As Inpatient Condition: Serious Discharge Instructions Interventions: ED Discharge Assessment Last Done: 09/01/22 19:17
[2022-09-01 15:23] LABS: Albumin Globulin Ratio 1.6 (0.9-2); Albumin Level 4.4 gm/dl (3.4-5.0); BUN Creatinine Ratio 21.5 (10-20); Bilirubin,Total 0.6 mg/dl (0.2-1.0); Calcium 9.1 mg/dl (8.6-10.3); Creatinine Clr Calc Pharmacy 63.2 ml/min; Est GFR (African American) 87.7 ml/min; Est GFR (Non-African American) 75.7 ml/min; Globulin 2.8 gm/dl (2.5-4.0); Potassium 4.2 mmol/L (3.5-5.1); Total Protein 7.2 gm/dl (6.0-8.3)
[2022-09-01] MEDS ORDERED: AMIODARONE IV BOLUS & DRIP IV STA (15:24)
[2022-09-01] MEDS ORDERED: STAT IV Infusion **Titration per Protocol STA (15:24)
[2022-09-01] MEDS ORDERED: ASPIRIN CHEW 324 MG PO STA (15:24)
[2022-09-01] MEDS ORDERED: AMIODARONE / D5W 150 MG/100 ML BAG IV STA (15:24)
[2022-09-01] MEDS ORDERED: 0.2 MICRON FILTER SET 1 EACH IV STA (15:24)
[2022-09-01 15:29] LABS: Troponin I High Sensitivity 4.9 pg/ml (0-20)
--- NOTE | 2022-09-01 15:29 | XRay Report ---
XR chest 1V portable CLINICAL HISTORY: Dysrhythmia TECHNIQUE: Single frontal radiograph of the chest was obtained. Comparison: Comparison is made to chest radiograph 05/09/2021 FINDINGS: Median sternotomy wires are unchanged. Dual-lead pacemaker is seen. Cardiomegaly is noted. The lungs are clear. No evidence of pleural effusion or pneumothorax. IMPRESSION: No acute chest disease. ACT 112: Negative or not required by law. Electronically signed by: García Bradford M.D. 09/01/2022 3:28 PM
[2022-09-01 15:33] LABS: INR 2.6 (0.9-1.1); Partial Thromboplastin Ratio 1.3; Partial Thromboplastin Time 36.5 Seconds (21.0-31.0); Prothrombin Time 27.2 Seconds (9.0-12.0)
[2022-09-01] MEDS ORDERED: AMIODARONE / D5W 360 MG/200 ML BAG IV ONE (15:35)
[2022-09-01] MEDS ORDERED: ETOMIDATE 2 MG/ML 20 ML VIAL IV STA (15:35)
[2022-09-01 15:38] LABS: Thyroid Stimulating Hormone 4.921 uIu/ml (0.300-4.500)
[2022-09-01 16:29] LABS: T4 Free Thyroxine 1.02 ng/dl (0.61-1.60)
--- NOTE | 2022-09-01 17:07 | Cardiology Consultation ---
Date of Consultation September 01, 2022 Assessment & Plan (1) Ventricular tachycardia: - Recent dyspnea on exertion, and now sustained ventricular tachycardia noted in this 82-year-old male with a longstanding history of coronary heart disease, LAD territory infarct in 1989, and CABG x4 in 1997 (details of bypass graft anatomy unknown). Patient with approximately 50 minutes of sustained ventricular tachycardia prior to receiving defibrillation in the emergency department. -He is now hemodynamically stable on an amiodarone infusion. -Patient known to have severe three-vessel coronary heart disease at time of initial cardiac catheterization in 1989 and has not had a repeat catheterization in the meantime. Recommend coronary evaluation during this hospital stay, but this is likely best performed at a tertiary center as complex PCI anticipated. After her coronary anatomy is delineated and revascularization performed if amenable, consideration will be made with regards to upgrading his device to an ICD. -Initial attempts were made to transfer the patient to [facility] since his cardiac care has been with [facility] for more than 20 years. He was accepted in [place] [facility] by [place]. Nelson Johnson, however there is no bed availability. I then received a message from our foster care case manager in the emergency department at [facility] but the patient's insurance required [facility] as the tertiary center that would be covered. I then called and discussed his case with Dr. Villatoro of cardiology at [facility] who accepted the patient in transfer, but no bed is available there either. -Plan will tentatively be for admission to the intensive care unit at [facility] with step down to PCU if ongoing stability confirmed, pending transfer the [facility]. The transfer center at [facility] brought a possibility of transferring him to [facility], but I am of the opinion that [facility] would be more ideal. -Patient received 81 mg of aspirin x4 tablets to be chewed. Continue prior to hospital treatment with amlodipine, metoprolol, losartan. Continue rosuvastatin 40 mg daily. -Most recent echocardiogram performed 10 days ago, repeat study will be performed. (2) LUCAS (dyspnea on exertion): - Patient's recent dyspnea on exertion and now arrhythmia suggest underlying progression of his coronary disease. -No angina at present. No evidence of volume overload (3) Aortic stenosis: - Mild aortic stenosis noted on recent echocardiogram, stable compared to 2020 (4) Ascending aortic aneurysm: Recent echocardiogram included aortic root measurement of 3.9, proximal ascend ing order diameter 4.2 cm. Previous echocardiogram studies included ascending aorta diameter of 4.6. A CT scan performed in 2018 included maximum ascending order diameter 4.4 cm. (5) Left ventricular mural thrombus: Patient with history of anterior, apical mural thrombus for which he is on chronic Coumadin. INR 2.6 Hold Coumadin and will allow INR to trend down. We will plan for heparin bridge when INR less than 2. Plan I spent a total of 1 hour and 55 minutes on the date of service in preparation, delivery, and documentation of the care provided to this patient, excluding any time spent in the performance of separately billed services. For the purpose of coordinating care, case discussed with Dr Avery, Dr Nelson Martinez at [facility], Dr Nugent at [facility], Dr Boucher of the hospitalist service at [facility], and Dr Springer of Critical care at [place]. Case discussed with case management. History of Present Illness History of Present Illness Nahun Sherman is an 82-year-old male seen in cardiology consultation per the request of Dr. Avery for the evaluation of ventricular tachycardia. Patient notes recent subjective dyspnea on exertion. For which she had recently been seen in the outpatient cardiology clinic at [facility] on 08/25/22. An echocardiogram had been performed on 08/22/2022 revealing a mid and distal LAD territory wall motion abnormality with akinesis of the mid and apical anterior wall, septum, apex, and apical inferior wall. The left ventricular ejection fraction was 45 to 49%. Mild aortic valve stenosis was noted. The aortic root and proximal ascending aorta are mildly enlarged with measurements of 3.9 and 4.2 cm. Compared to the previous study dating back to March,, the left ventricular wall motion and ejection fraction relatively unchanged. As was the mild aortic stenosis. The patient had undergone a nuclear stress test in 2020 that revealed a fixed anterior, septal, apical, and apical inferior wall motion abnormality without inducible ischemia, ejection fraction 50% by gated SPECT technique, that correlates relatively well with the recent echocardiogram. The patient states he was in his usual state of health today. He was mowing his neighbors grass with a self-propelled push lawnmower when just after 2 PM he felt onset of shortness of breath. He sat down and took his pulse and noted his pulse was elevated in excess of 200 bpm. He had a friend drive him to the emergency department at [facility] where EKG revealed the presence of a wide-complex tachycardia at 215 bpm. There were initial concerns at this may have been a supraventricular tachycardia with aberrant conduction. A dose of IV adenosine was administered without change in the tachycardia. With working diagnosis of sustained ventricular tachycardia, the patient then underwent defibrillation x1 with successful conversion to sinus rhythm. Repeat EKG revealed sinus rhythm with atrial pacing at [address] segment depression. Subsequent tracing performed at 1543 revealed resolution of the previously noted ST segment depression, with sinus rhythm at 66 bpm, first- degree AV block, and occasional PVCs. The patient has since been started on amiodarone infusion. At the time my frank luation with the patient's spouse and son at the bedside, the patient was awake and oriented. He was asymptomatic without symptoms of chest discomfort, or shortness of breath at the time of my assessment. The patient's dual-chamber Medtronic pacemaker was interrogated remotely with findings of a 47-minute episode of ventricular tachycardia, ventricular rates in excess of 200 bpm, that started at 2:12 PM. There was a brief termination, with onset of a repeat episode that lasted 3 minutes and 58 seconds with termination correlating with when the patient received fibrillation in the emergency department. Problem list: 1. ASCVD 1.S/p anterior myocardial infarction 1989. 2.Coronary bypass grafting 1989 x 4 [facility]. 3.History of ischemic cardiomyopathy EF 45 to 50% with expanded LAD distribution 4.History of chronic mural thrombus on anticoagulation with Coumadin. 1.Aortic stenosis 2.Ascending thoracic aortic aneurysm, maximum dimension on CT angiogram performed in 2017 4.4 cm 3.Past recurrent GI bleed with gastric outlet obstruction s/p antrectomy with vagotomy and Bill Akhtar II anastomosis 1997. 4.Hyperlipidemia. 5.Hypothyroidism 6.Sinoatrial node dysfunction with chronic ventricular ectopy status post dual- chamber pacemaker insertion April 27, 2021, Medtronic W1 0 1 Allergies Allergy/AdvReac Type Severity Reaction Status Date / Time No Known Allergies Allergy Verified 08/30/22 13:14 Home Medications Medication Instructions Recorded Confirmed Type amlodipine 5 mg tablet 5 mg PO QAM 07/01/19 08/30/22 History multivitamin (Daily Multi-Vitamin 1 tab PO QPM 07/01/19 08/30/22 History tablet) warfarin 5 mg tablet 5 mg PO QPM 07/01/19 08/30/22 History losartan 25 mg tablet 25 mg PO QAM 06/03/20 08/30/22 History rosuvastatin 40 mg tablet (Crestor) 40 mg PO QPM 06/03/20 08/30/22 History calcium carbonate 600 mg calcium 600 mg PO QPM 05/09/21 08/30/22 History (1,500 mg) tablet (Calcium) levothyroxine 112 mcg tablet 112 mcg PO QAM 05/09/21 08/30/22 History (Synthroid) metoprolol succinate 50 mg 50 mg PO QPM 05/09/21 08/30/22 History tablet,extended release 24 hr (Toprol XL) Patient History Medical History Aortic aneurysm next echo is 12/01/22>Dr. Dunham monitoring Benign prostatic hyperplasia with urinary obstruction CAD (coronary artery disease) Follows with Dr. Dunham Cardiac murmur Dupuytren's disease Erectile dysfunction GERD (gastroesophageal reflux disease) History of gastric ulcer History of GI bleed History of melanoma History of myocardial infarction 1989 Hx of cardiac pacemaker 04/2021, [facility]; F/U DR. DUNHAM, S Hyperlipidemia Hypertension Hypothyroidism Intracardiac thrombus CURRENTLY ON COUMADIN On warfarin therapy Osteoarthritis Surgical History History of arthroscopy of right knee History of cardiac catheterization 1989 - , DONE AT [facility] IN [place], NO STENTS--> CABG History of cholecystectomy History of colonoscopy History of esophagogastroduodenoscopy (EGD) History of hand surgery Left x 2 History of hernia repair History of melanoma excision History of partial gastrectomy History of quadruple bypass 1989, [facility] IN [place]; F/U DR. DUNHAM, S History of right knee joint replacement Hx of bilateral cataract extraction Hx of cystoscopy YEARS AGO FOR HEMATURIA Family History Father No problems noted. Other No family history of adverse response to anesthesia No pertinent family history in first degree relatives Denies family history of Prostate cancer Social History Smoking Status: Never smoker Second Hand Exposure: Yes (HX 30 YEARS AGO); Do You Dip or Chew Tobacco: No; Hx Alcohol Use: Yes Alcohol type: beer and wine Hx Substance Use: No Preferred Language: Macedonian Communication Ability: Effective [employer]er Required: No Beliefs That Will Affect Care: None Current Living Situation: Spouse Feels Safe at Home: Yes Assistive Devices: Denture - Upper, Denture - Lower and Glasses Review of Systems Review of Systems: All systems reviewed & are unremarkable except as noted in HPI & below Physical Exam Physical Exam: Temp Pulse Resp BP Pulse Ox O2 Del Method O2 Flow Rate 36.8 C 60 18 130/64 100 Nasal Cannula 2 09/01/22 14:32 09/01/22 16:50 09/01/22 16:50 09/01/22 16:45 09/01/22 16:50 09/01/22 15:04 09/01/22 16:50 Constitutional: WD/WN, vitals as above Eyes: PERRL, conjunctivae normal, anicteric sclerae Respiratory: normal respiratory effort, lungs clear to auscultation Cardiovascular: RRR, no murmur, no edema Gastrointestinal (Abdomen): normal bowel sounds, soft, nontender, no hepatosplenomegaly Neurologic: PERRL, EOMI, accommodation nl, no face palsy, no dysarthria Results & Data Laboratory Results Cardiac Enzymes 09/01/22 Range/Units 14:45 AST 23 (13-39) U/L Troponin I High Sens 4.9 (0-20) pg/ml Coagulation 09/01/22 Range/Units 14:45 PT 27.2 H (9.0-12.0) Seconds APTT 36.5 H (21.0-31.0) Seconds CBC 09/01/22 Range/Units 14:45 WBC 12.14 H (4.8-10.8) K/ul RBC 4.77 (4.70-6.10) M/uL Hgb 14.0 (14.0-18.0) g/dl Hct 41.6 L (42.0-52.0) % Plt Count 268 (130-400) K/uL Neut # (Auto) 7.87 H (1.40-6.50) K/uL Lymph # (Auto) 2.77 (1.2-3.4) K/uL [place] # (Auto) 0.93 H (0.11-0.59) K/uL Eos # (Auto) 0.27 (0-0.50) K/uL Baso # (Auto) 0.15 (0-0.2) K/uL Comprehensive Metabolic Panel 09/01/22 Range/Units 14:45 Sodium 137 (136-145) mmol/L Potassium 4.2 (3.5-5.1) mmol/L Chloride 103 (98-107) mmol/L Carbon Dioxide 27 (21-32) mmol/L BUN 20 (6-23) mg/dl Creatinine 0.93 (0.6-1.4) mg/dl Glucose 136 H (70-99(Fasting)) mg/dl Calcium 9.1 (8.6-10.3) mg/dl AST 23 (13-39) U/L ALT 22 (7-52) U/L Alkaline Phosphatase 57 (34-104) U/L Total Protein 7.2 (6.0-8.3) gm/dl Albumin 4.4 (3.4-5.0) gm/dl Diagnostic Findings EKG tracings as noted in the HPI. Recent echocardiogram as noted in the HPI.
--- NOTE | 2022-09-01 17:20 | History & Physical Report ---
Date of Service September 01, 2022 Assessment & Plan (1) Ventricular tachycardia: Plan: Presented with sustained ventricular tachycardia as noted on pacer interrogation to of lasted approximately 45 minutes until successful defibrillation in the ER Possibly related to known LAD territory scar versus ischemia or worsening CAD Continue amiodarone drip Monitor on telemetry in PCU Awaiting transfer to for further evaluation and likely ICD placement after possible complex PCI Keep electrolytes optimized-follow BMP and magnesium and replace as needed Continue home metoprolol (2) CAD (coronary artery disease): Plan: History of four-vessel CABG 33 years ago With recent worsening dyspnea on exertion, known ischemic cardiomyopathy with echocardiogram as an outpatient in the last 1 to 2 weeks showing EF 45-49% with anteroseptal wall motion abnormality unchanged from previous With ST depressions diffusely on ECG here shortly after defibrillation from V. tach as above Trend troponin Check echocardiogram Continue home metoprolol, losartan, rosuvastatin Holding warfarin Was given aspirin here It is unclear if he is on aspirin at home? Monitor on telemetry (3) Hx of cardiac pacemaker: Plan: Placed for sinoatrial dysfunction May need upgrade to ICD (4) Left ventricular mural thrombus: Plan: Holding chronic Coumadin for planned upcoming cardiac procedure Would give therapeutic IV heparin once INR less than 2 (5) Ascending aortic aneurysm: Plan: Recent echocardiogram in the [facility] cardiology office 1 to 2 weeks ago showed aortic root measurement 3.9 cm, proximal ascending aorta diameter 4.2 cm Follow as an outpatient Blood pressure control (6) Aortic stenosis: Plan: Mild as noted on recent outpatient echocardiogram and stable compared to 2020 Follow as an outpatient (7) Hypertension: Plan: Blood pressures are controlled Continue home amlodipine, losartan, metoprolol Plan DVT prophylaxis-Coumadin on hold but INR is therapeutic currently Disposition-admit to PCU, is excepted by Dr. Villatoro of the cardiology service at , awaiting bed. History of Present Illness Chief Complaint: Rapid heartbeat Primary Care Provider: Keith Moreno MD This patient is an 82-year-old male with a history of CAD s/p 4V CABG in 1989, HFrEF with EF 45% and known LAD territory scar, dual-chamber pacemaker placed for sinoatrial node dysfunction with chronic ventricular ectopy, mild aortic stenosis, ascending aortic aneurysm, history of left ventricular mural thrombus on chronic Coumadin, hypothyroidism, hyperlipidemia, history of GI bleed with gastric outlet obstruction s/p antrectomy with vagotomy and Billroth II anastomosis, who presents to the ER with rapid pulse rate and shortness of breath. He was using a self-propelled push lawnmower while mowing the grass today and noticed shortness of breath. He checked his carotid pulse and noted it to be over 200 bpm. He asked his friend to drive him to the hospital where he was found to be with a wide-complex tachycardia with rates in the 200s. He was initially given adenosine when there was a question of whether this was SVT with aberrant conduction or not, but then thought to be more sustained ventricular tachycardia. He then underwent defibrillation x1 with successful conversion to sinus rhythm. He was also noted to have diffuse ST segment depression on the EKG once he was in sinus rhythm. A subsequent EKG later then did show resolution of the ST segment depression, but with first-degree AV block and occasional PVCs, rates in the 60s. He was started on amiodarone drip. Attempts were made to transfer the patient to tertiary care by cardiology, but there are no beds available at [facility] at this time. His insurance does not allow him to go to [facility]. He is accepted at by Dr. Villatoro of the cardiology service. The reason for transfer is that he is expected to require a complex PCI and needs coronary evaluation and then likely ICD placement. I discussed his care with Dr. De Los Santos of cardiology at the time of admission. Allergies Allergy/AdvReac Type Severity Reaction Status Date / Time No Known Allergies Allergy Verified 09/01/22 17:31 Home Medications Medication Instructions Recorded Confirmed Type amlodipine 5 mg tablet 5 mg PO QAM 07/01/19 09/01/22 History multivitamin (Daily Multi-Vitamin 1 tab PO QPM 07/01/19 09/01/22 History tablet) warfarin 5 mg tablet 5 mg PO 5XWK 07/01/19 09/01/22 History rosuvastatin 40 mg tablet (Crestor) 40 mg PO QPM 06/03/20 09/01/22 History levothyroxine 112 mcg tablet 112 mcg PO DAILYBB 05/09/21 09/01/22 History (Synthroid) metoprolol succinate 50 mg 50 mg PO QPM 05/09/21 09/01/22 History tablet,extended release 24 hr (Toprol XL) calcium carbonate 600 mg-vitamin 1 tab PO DAILY 09/01/22 09/01/22 History D3 5 mcg (200 unit) tablet (Calcium 600 + D(3)) losartan 25 mg tablet 25 mg PO DAILY 09/01/22 09/01/22 History warfarin 5 mg tablet 2.5 mg PO 2XWK 09/01/22 09/01/22 History Past Med/Surg History Medical History Aortic aneurysm next echo is 12/01/22>Dr. Dunham monitoring Benign prostatic hyperplasia with urinary obstruction CAD (coronary artery disease) Follows with Dr. Dunham Cardiac murmur Dupuytren's disease Erectile dysfunction GERD (gastroesophageal reflux disease) History of gastric ulcer History of GI bleed History of melanoma History of myocardial infarction 1989 Hx of cardiac pacemaker 04/2021, [facility]; F/U DR. DUNHAM Jessica Hyperlipidemia Hypertension Hypothyroidism Intracardiac thrombus CURRENTLY ON COUMADIN On warfarin therapy Osteoarthritis Surgical History History of arthroscopy of right knee History of cardiac catheterization 1989, DONE AT [facility] IN [place], NO STENTS--> CABG History of cholecystectomy History of colonoscopy History of esophagogastroduodenoscopy (EGD) History of hand surgery Left x 2 History of hernia repair History of melanoma excision History of partial gastrectomy History of quadruple bypass 1989, [facility] IN [place]; F/U DR. DUNHAM Jessica History of right knee joint replacement Hx of bilateral cataract extraction Hx of cystoscopy YEARS AGO FOR HEMATURIA Family History Father No problems noted. Other No family history of adverse response to anesthesia No pertinent family history in first degree relatives Denies family history of Prostate cancer Social History Smoking Status: Never smoker Second Hand Exposure: Yes (HX 30 YEARS AGO); Do You Dip or Chew Tobacco: No; Hx Alcohol Use: Yes Alcohol type: beer and wine Hx Substance Use: No Preferred Language: Citizen Of [place] Communication Ability: Effective Electronic Equipment [employer] Required: No Beliefs That Will Affect Care: None Current Living Situation: Spouse Feels Safe at Home: Yes Assistive Devices: Denture - Upper, Denture - Lower and Glasses Review of Systems Review of Systems: All systems reviewed & are unremarkable except as noted in HPI & below Physical Exam Constitutional: WD/WN, vitals as above Eyes: PERRL, conjunctivae normal, anicteric sclerae ENMT: external ear and nose normal, oropharynx normal Neck: trachea midline, no thyromegaly Respiratory: normal respiratory effort, lungs clear to auscultation Cardiovascular: Rate/Rhythm: regular rate and regular rhythm Heart Sounds: + murmur (3/6 WAQAS at LLSB) Chest (Breasts): Chest: normal inspection of chest Gastrointestinal (Abdomen): normal bowel sounds, soft, nontender, no he patosplenomegaly Musculoskeletal: Extremities: extremities normal to inspection; no cyanosis and no clubbing Skin: no rashes, warm and dry Neurologic: moves all extremities and awake; no focal motor deficits Psychiatric: A+Ox3, euthymic affect Lymphatic: no lymphedema Results & Data Results & Data Vital Signs (Past 12 Hours) Vital Signs Temp Pulse Pulse Resp BP BP Pulse Ox 09/01/22 16:55 60 17 100 09/01/22 16:50 112/66 09/01/22 16:50 60 18 100 09/01/22 16:45 60 13 100 09/01/22 16:45 130/64 09/01/22 16:41 119/59 L 09/01/22 16:41 61 22 100 09/01/22 16:40 61 18 100 09/01/22 16:36 116/71 09/01/22 16:36 60 19 100 09/01/22 16:35 60 17 100 09/01/22 16:30 60 18 100 09/01/22 16:30 121/64 09/01/22 16:25 60 18 99 09/01/22 16:25 119/69 09/01/22 16:20 60 20 100 09/01/22 16:20 129/65 09/01/22 16:15 60 16 100 09/01/22 16:15 127/65 09/01/22 16:10 61 13 100 09/01/22 16:10 114/67 09/01/22 16:05 60 15 100 09/01/22 16:05 123/66 09/01/22 16:01 61 22 100 09/01/22 16:01 122/77 09/01/22 16:00 61 14 100 09/01/22 15:55 66 24 100 09/01/22 15:55 134/73 09/01/22 15:50 64 17 98 09/01/22 15:50 135/77 09/01/22 15:45 63 17 100 09/01/22 15:45 135/69 09/01/22 15:40 68 17 99 09/01/22 15:40 138/74 09/01/22 15:35 134/77 09/01/22 15:35 60 18 100 09/01/22 15:30 60 19 100 09/01/22 15:30 137/78 09/01/22 15:25 61 17 100 09/01/22 15:25 134/85 09/01/22 15:20 67 16 100 09/01/22 15:20 114/77 09/01/22 15:15 115/74 09/01/22 15:15 60 10 L 100 09/01/22 15:10 60 18 100 09/01/22 15:10 123/79 09/01/22 15:05 74 13 100 09/01/22 15:05 125/80 09/01/22 15:00 98 H 20 99 09/01/22 15:00 127/90 09/01/22 14:56 57/43 L 09/01/22 14:56 208 H 20 97 09/01/22 14:55 210 H 13 09/01/22 14:51 70/55 L 09/01/22 14:51 214 H 18 09/01/22 14:50 216 H 24 09/01/22 14:47 153 H 18 09/01/22 15:04 70 16 127/90 100 09/01/22 15:01 130 H 09/01/22 14:56 209 H 09/01/22 14:50 195 H 09/01/22 14:32 36.8 C 222 H 20 98 O2 Del Method O2 Flow Rate 09/01/22 16:55 Room Air 09/01/22 16:50 09/01/22 16:50 2 09/01/22 16:45 2 09/01/22 16:45 09/01/22 16:41 09/01/22 16:41 2 09/01/22 16:40 2 09/01/22 16:36 09/01/22 16:36 2 09/01/22 16:35 2 09/01/22 16:30 2 09/01/22 16:30 09/01/22 16:25 2 09/01/22 16:25 09/01/22 16:20 2 09/01/22 16:20 09/01/22 16:15 2 09/01/22 16:15 09/01/22 16:10 2 09/01/22 16:10 09/01/22 16:05 2 09/01/22 16:05 09/01/22 16:01 2 09/01/22 16:01 09/01/22 16:00 2 09/01/22 15:55 2 09/01/22 15:55 09/01/22 15:50 2 09/01/22 15:50 09/01/22 15:45 2 09/01/22 15:45 09/01/22 15:40 2 09/01/22 15:40 09/01/22 15:35 09/01/22 15:35 2 09/01/22 15:30 2 09/01/22 15:30 09/01/22 15:25 2 09/01/22 15:25 09/01/22 15:20 2 09/01/22 15:20 09/01/22 15:15 09/01/22 15:15 4 09/01/22 15:10 4 09/01/22 15:10 09/01/22 15:05 4 09/01/22 15:05 09/01/22 15:00 4 09/01/22 15:00 09/01/22 14:56 09/01/22 14:56 09/01/22 14:55 09/01/22 14:51 09/01/22 14:51 09/01/22 14:50 09/01/22 14:47 09/01/22 15:04 Nasal Cannula 4 09/01/22 15:01 09/01/22 14:56 09/01/22 14:50 09/01/22 14:32 Room Air Laboratory Results CBC, CMP, troponin, INR, magnesium, TSH and free T4 all reviewed 05/25/23 05/25/23 05/25/23 Range/Units 15:15 14:52 14:45 WBC (4.8-10.8) K/ul RBC (4.70-6.10) M/uL Hgb (14.0-18.0) g/dl POC Hgb 15.0 (14.0-18.0) g/dl Hct (42.0-52.0) % POC Hct 44 (42-52) % MCV (80.0-100.0) fL MCH (25.0-34.0) pg MCHC (32.0-36.0) g/dL RDW Std Deviation (36.4-46.3) fL RDW Coeff of Dov (11.5-14.5) % Plt Count (130-400) K/uL MPV (9.4-12.4) fL Immature Gran % (Auto) % Neut % (Auto) % Lymph % (Auto) % Sanders % (Auto) % Eos % (Auto) % Baso % (Auto) % Neut # (Auto) (1.40-6.50) K/uL Lymph # (Auto) (1.2-3.4) K/uL Sanders # (Auto) (0.11-0.59) K/uL Eos # (Auto) (0-0.50) K/uL Baso # (Auto) (0-0.2) K/uL Immature Gran # (Auto) (0.01-0.20) K/uL PT (9.0-12.0) Seconds INR (0.9-1.1) APTT (21.0-31.0) Seconds PTT Ratio POC Sodium 138 (135-144) mmol/L Sodium (136-145) mmol/L POC Potassium 4.2 (3.3-5.0) mmol/L Potassium (3.5-5.1) mmol/L POC Chloride 101 (101-112) mmol/L Chloride (98-107) mmol/L Carbon Dioxide (21-32) mmol/L POC Total CO2 26 (24-31) mmol/L Anion Gap (3-11) POC Anion Gap 16.0 (16-25) mmol/L POC BUN 20 H (7-18) mg/dl BUN (6-23) mg/dl Creatinine (0.6-1.4) mg/dl POC Creatinine 0.9 (0.6-1.3) mg/dl Est Cr Clr Drug Dosing ml/min Est GFR ( Amer) ml/min Est GFR (Non-Af Amer) ml/min BUN/Creatinine Ratio (10-20) Glucose (70-99(Fasting)) mg/dl POC Glucose (other) 137 H (70-99) mg/dl Calcium (8.6-10.3) mg/dl POC Ioniz Calcium Becca 1.16 (1.12-1.32) mmol/l Magnesium (1.7-2.4) mg/dl Total Bilirubin (0.2-1.0) mg/dl AST (13-39) U/L ALT (7-52) U/L Alkaline Phosphatase (34-104) U/L Troponin I High Sens (0-20) pg/ml Total Protein (6.0-8.3) gm/dl Albumin (3.4-5.0) gm/dl Globulin (2.5-4.0) gm/dl Albumin/Globulin Ratio (0.9-2) TSH 4.921 H (0.300-4.500) uIu/ml Free T4 1.02 (0.61-1.60) ng/dl SARS-CoV-2, RNA, NAAT NEGATIVE (NEGATIVE) 09/01/22 09/01/22 09/01/22 Range/Units 14:45 14:45 14:45 WBC 12.14 H (4.8-10.8) K/ul RBC 4.77 (4.70-6.10) M/uL Hgb 14.0 (14.0-18.0) g/dl POC Hgb (14.0-18.0) g/dl Hct 41.6 L (42.0-52.0) % POC Hct (42-52) % MCV 87.2 (80.0-100.0) fL MCH 29.4 (25.0-34.0) pg MCHC 33.7 (32.0-36.0) g/dL RDW Std Deviation 44.0 (36.4-46.3) fL RDW Coeff of Dov 13.7 (11.5-14.5) % Plt Count 268 (130-400) K/uL MPV 10.5 (9.4-12.4) fL Immature Gran % (Auto) 1.2 % Neut % (Auto) 64.9 % Lymph % (Auto) 22.8 % Sanders % (Auto) 7.7 % Eos % (Auto) 2.2 % Baso % (Auto) 1.2 % Neut # (Auto) 7.87 H (1.40-6.50) K/uL Lymph # (Auto) 2.77 (1.2-3.4) K/uL Sanders # (Auto) 0.93 H (0.11-0.59) K/uL Eos # (Auto) 0.27 (0-0.50) K/uL Baso # (Auto) 0.15 (0-0.2) K/uL Immature Gran # (Auto) 0.15 (0.01-0.20) K/uL PT 27.2 H (9.0-12.0) Seconds INR 2.6 H (0.9-1.1) APTT 36.5 H (21.0-31.0) Seconds PTT Ratio 1.3 POC Sodium (135-144) mmol/L Sodium 137 (136-145) mmol/L POC Potassium (3.3-5.0) mmol/L Potassium 4.2 (3.5-5.1) mmol/L POC Chloride (101-112) mmol/L Chloride 103 (98-107) mmol/L Carbon Dioxide 27 (21-32) mmol/L POC Total CO2 (24-31) mmol/L Anion Gap 7 (3-11) POC Anion Gap (16-25) mmol/L POC BUN (7-18) mg/dl BUN 20 (6-23) mg/dl Creatinine 0.93 (0.6-1.4) mg/dl POC Creatinine (0.6-1.3) mg/dl Est Cr Clr Drug Dosing 63.2 ml/min Est GFR ( Amer) 87.7 ml/min Est GFR (Non-Af Amer) 75.7 ml/min BUN/Creatinine Ratio 21.5 H (10-20) Glucose 136 H (70-99(Fasting)) mg/dl POC Glucose (other) (70-99) mg/dl Calcium 9.1 (8.6-10.3) mg/dl POC Ioniz Calcium Becca (1.12-1.32) mmol/l Magnesium 2.0 (1.7-2.4) mg/dl Total Bilirubin 0.6 (0.2-1.0) mg/dl AST 23 (13-39) U/L ALT 22 (7-52) U/L Alkaline Phosphatase 57 (34-104) U/L Troponin I High Sens 4.9 (0-20) pg/ml Total Protein 7.2 (6.0-8.3) gm/dl Albumin 4.4 (3.4-5.0) gm/dl Globulin 2.8 (2.5-4.0) gm/dl Albumin/Globulin Ratio 1.6 (0.9-2) TSH (0.300-4.500) uIu/ml Free T4 (0.61-1.60) ng/dl SARS-CoV-2, RNA, NAAT (NEGATIVE) Diagnostic Findings Chest x-ray reviewed Chest X-Ray 09/01/22 14:47 XR chest 1V portable CLINICAL HISTORY: Dysrhythmia TECHNIQUE: Single frontal radiograph of the chest was obtained. Comparison: Comparison is made to chest radiograph 05/09/2021 FINDINGS: Median sternotomy wires are unchanged. Dual-lead pacemaker is seen. Cardiomegaly is noted. The lungs are clear. No evidence of pleural effusion or pneumothorax. IMPRESSION: No acute chest disease. ACT 112: Negative or not required by law. Electronically signed by: García Bradford M.D. 09/01/2022 3:28 PM Code Status & VTE Plan Code Status FULL CODE VTE Prophylaxis Plan VTE Prophylaxis will be ordered: Yes PG Care Time/CCT Total # of Minutes Spent Total Time Spent with Patient: Total time spent is greater than 50% in coordination of care (as documented) at patient's floor/unit and/or counseling patient: Coding Level of Care Code 65875 INT INP/OBS CARE 3/75MIN Diagnoses Ventricular tachycardia I47.20 CAD (coronary artery disease) I25.10 Hx of cardiac pacemaker Z95.0 Left ventricular mural thrombus I51.3 Ascending aortic aneurysm I71.21 Aortic stenosis I35.0 Hypertension I10
[2022-09-01] MEDS ORDERED: MoRPHine SULFATE 2 MG/ML CARP IV PRN (20:19)
[2022-09-01] MEDS ORDERED: NITROGLYCERIN SL 0.4 MG/TAB TAB SL PRN (20:19)
[2022-09-01] MEDS ORDERED: ACETAMINOPHEN 325 MG TAB PO PRN (20:19)
[2022-09-01] MEDS ORDERED: CEROVITE ADV FORMULA TAB PO SCH (21:00)
[2022-09-01] MEDS ORDERED: ROSUVASTATIN CALCIUM 20 MG TAB PO SCH (21:00)
[2022-09-01] MEDS ORDERED: METOPROLOL SUCC 50MG EXT REL TAB PO SCH (21:00)
[2022-09-01] MEDS: AMIODARONE / D5W 360 MG/200 ML BAG IV SCH (21:38)
[2022-09-02 04:51] LABS: Basophils # (auto) 0.08 K/uL (0-0.2); Basophils % (auto) 1.3 %; Eosinophils % (auto) 4.7 %; Hematocrit (blood only) 37.4 % (42.0-52.0); Hemoglobin 12.7 g/dl (14.0-18.0); Immature Granulocytes # (auto) 0.01 K/uL (0.01-0.20); Immature Granulocytes % (auto) 0.2 %; Lymphocytes # (auto) 1.73 K/uL (1.2-3.4); Lymphocytes % (auto) 27.2 %; Mean Corpuscular Hemoglobin 29.5 pg (25.0-34.0); Mean Corpuscular Volume 86.8 fL (80.0-100.0); Mean Platelet Volume 10.5 fL (9.4-12.4); Monocytes # (auto) 0.63 K/uL (0.11-0.59); Monocytes % (auto) 9.9 %; Neutrophils # (auto) 3.61 K/uL (1.40-6.50); Neutrophils % (auto) 56.7 %; Platelet Count 204 K/uL (130-400); RDW Coefficient of Variation 13.8 % (11.5-14.5); RDW Standard Deviation 44.6 fL (36.4-46.3); Red Blood Count 4.31 M/uL (4.70-6.10); White Blood Count 6.36 K/ul (4.8-10.8)
[2022-09-02 05:08] LABS: BUN Creatinine Ratio 16.7 (10-20); Calcium 8.8 mg/dl (8.6-10.3); Creatinine Clr Calc Pharmacy 60.2 ml/min; Est GFR (African American) 91.2 ml/min; Est GFR (Non-African American) 78.7 ml/min; Potassium 4.1 mmol/L (3.5-5.1)
[2022-09-02 05:17] LABS: INR 2.6 (0.9-1.1); Prothrombin Time 27.2 Seconds (9.0-12.0)
[2022-09-02] MEDS ORDERED: LEVOTHYROXINE SODIUM 112 MCG TABLET PO SCH (06:30)
--- NOTE | 2022-09-02 07:14 | Hospitalist Progress Note ---
Date of Service September 02, 2022 Assessment & Plan (1) Ventricular tachycardia: Plan: Presented with sustained ventricular tachycardia as noted on pacer interrogation to of lasted approximately 45 minutes until successful defibrillation in the ER Possibly related to known LAD territory scar versus ischemia or worsening CAD Continue amiodarone drip Monitor on telemetry in PCU Awaiting transfer to [facility] for further evaluation and likely ICD placement after possible complex PCI Keep electrolytes optimized-follow BMP and magnesium and replace as needed Continue home metoprolol (2) CAD (coronary artery disease): Plan: History of four-vessel CABG 33 years ago With recent worsening dyspnea on exertion, known ischemic cardiomyopathy with echocardiogram as an outpatient in the last 1 to 2 weeks showing EF 45-49% with anteroseptal wall motion abnormality unchanged from previous With ST depressions diffusely on ECG here shortly after defibrillation from V. tach as above Troponin peaked at 1200, trending down Echo with thinning of the anteroseptal. Mild concentric LVH. . There is a moderate-sized apical, septal, and anteroseptal wall motion abnormality with akinesis to the kinesis of the segments. EF= 30-35%. Aortic valve is moderately calcified. Mild/moderate . Mild mitral regurgitation is present. Grade 1 diastolic dysfunction noted. Continue home metoprolol, losartan, rosuvastatin Holding warfarin Aspirin added with Protonix Monitor on telemetry (3) Hx of cardiac pacemaker: Plan: Placed for sinoatrial dysfunction May need upgrade to ICD (4) Left ventricular mural thrombus: Plan: Holding chronic Coumadin for planned upcoming cardiac procedure Would give therapeutic IV heparin once INR less than 2 (5) Ascending aortic aneurysm: Plan: Recent echocardiogram in the [facility] cardiology office 1 to 2 weeks ago showed aortic root measurement 3.9 cm, proximal ascending aorta diameter 4.2 cm Follow as an outpatient Blood pressure control (6) Aortic stenosis: Plan: Mild as noted on recent outpatient echocardiogram and stable compared to 2020 Follow as an outpatient (7) Hypertension: Plan: Blood pressures are controlled Continue home amlodipine, losartan, metoprolol Plan DVT prophylaxis-Coumadin on hold but INR is therapeutic currently Disposition-admit to PCU, is excepted by Dr. Villatoro of the cardiology service at [facility], awaiting bed. Admission and Anticipated Discharge Date Admission Date: September 01, 2022 Subjective Doing well this morning no complaints. States that he feels as though he is in his normal state of health. Denies chest pain, dyspnea. Review of Systems Review of Systems: As per above Physical Exam Physical Exam: Constitutional: well-appearing, no acute distress HEENT: NCAT, no conjunctival injection CV: regular rhythm, no murmur appreciated, extremities well-perfused, no LE edema Resp: CTABL, no wheezes/rales/rhonchi appreciated, no increased work of breathing MSK: no gross deformities appreciated Skin: warm, dry, no rash appreciated Neuro: alert, oriented, no focal neurologic deficit appreciated Results & Data Results & Data Vital Signs (Past 12 Hours) Vital Signs Temp Pulse Pulse Resp BP BP Pulse Ox 09/02/22 03:11 36.5 C 70 18 115/69 99 09/02/22 00:46 60 09/01/22 23:16 36.4 C L 63 18 101/58 L 97 09/01/22 21:00 61 17 94 09/01/22 20:01 60 19 99 09/01/22 20:01 137/79 09/01/22 20:00 60 15 97 09/01/22 19:40 131/78 09/01/22 19:40 65 22 98 09/01/22 19:36 62 12 09/01/22 19:50 62 09/01/22 19:15 60 17 97 O2 Del Method 09/02/22 03:11 Room Air 09/02/22 00:46 09/01/22 23:16 Room Air 09/01/22 21:00 09/01/22 20:01 09/01/22 20:01 09/01/22 20:00 Room Air 09/01/22 19:40 09/01/22 19:40 09/01/22 19:36 09/01/22 19:50 09/01/22 19:15 Resident Activity Tracking Resident Involvement: Resident Care Provided Care Provided: Adult Hospital Medicine
--- NOTE | 2022-09-02 07:48 | Electrocardiogram Report ---
Test Reason : Blood Pressure : / mmHG Vent. Rate : 215 BPM Atrial Rate : 000 BPM P-R Int : 000 ms QRS Dur : 100 ms QT Int : 228 ms P-R-T Axes : 000 106 -88 degrees QTc Int : 431 ms Supraventricular tachycardia Rightward axis Anteroseptal infarct (cited on or before 19-NOV-1997) Abnormal ECG When compared with ECG of 20-APR-2020 14:55, Supraventricular tachycardia has replaced Sinus bradycardia Vent. rate has increased by 162 bpm Confirmed by Justin Cramer ([id number]) on 09/02/2022 7:47:51 AM Referred By: REFERRED SELF Confirmed By:Justin Cramer
--- NOTE | 2022-09-02 07:50 | Electrocardiogram Report ---
Test Reason : Blood Pressure : / mmHG Vent. Rate : 072 BPM Atrial Rate : 072 BPM P-R Int : 276 ms QRS Dur : 100 ms QT Int : 386 ms P-R-T Axes : 067 -43 -45 degrees QTc Int : 422 ms Atrial-paced rhythm with prolonged AV conduction Left axis deviation RSR' or QR pattern in V1 suggests right ventricular conduction delay Marked ST abnormality, possible lateral subendocardial injury Abnormal ECG When compared with ECG of 01-SEP-2022 14:45, Electronic atrial pacemaker has replaced Sinus rhythm Vent. rate has decreased BY 143 BPM RSR' pattern in V1 is now Present Criteria for Anteroseptal infarct are no longer Present ST now depressed in Lateral leads Confirmed by Justin Cramer ([id number]) on 09/02/2022 7:49:49 AM Referred By: REFERRED SELF Confirmed By:Justin Cramer
--- NOTE | 2022-09-02 07:54 | Electrocardiogram Report ---
Test Reason : Blood Pressure : / mmHG Vent. Rate : 066 BPM Atrial Rate : 063 BPM P-R Int : 236 ms QRS Dur : 102 ms QT Int : 432 ms P-R-T Axes : 067 -45 024 degrees QTc Int : 452 ms Atrial-paced rhythm with prolonged AV conduction with occasional Premature ventricular complexes Left axis deviation Nonspecific ST and T wave abnormality Abnormal ECG When compared with ECG of 01-SEP-2022 15:02, Premature ventricular complexes are now Present Confirmed by Justin Cramer ([id number]) on 09/02/2022 7:53:39 AM Referred By: REFERRED SELF Confirmed By:Justin Cramer
[2022-09-02] MEDS: AMIODARONE / D5W 360 MG/200 ML BAG IV SCH ×2 (08:36→19:26)
[2022-09-02] MEDS ORDERED: LOSARTAN POTASSIUM 25 MG TAB PO SCH (09:00)
[2022-09-02] MEDS ORDERED: amLODIPine BESYLATE 5 MG TAB PO SCH (09:00)
[2022-09-02] MEDS ORDERED: CALCIUM 600MG + VIT D 400 IU TAB PO SCH (09:00)
--- NOTE | 2022-09-02 09:46 | Cardiology Progress Note ---
Date of Service September 02, 2022 Assessment & Plan (1) Ventricular tachycardia: Plan: - Recent dyspnea on exertion, and now sustained ventricular tachycardia noted in this 82-year-old male with a longstanding history of coronary heart disease, LAD territory infarct in 1989, and CABG x4 in 1997 (details of bypass graft anatomy unknown). Patient with approximately 50 minutes of sustained ventricular tachycardia prior to receiving Synchronized cardioversion in the emergency department on 09/01/2022 at 1459 with successful conversion to sinus rhythm in the emergency department. -He is now hemodynamically stable on an amiodarone infusion.Liver function test within normal limits. TSH 4.921, acceptable.Screening chest x-ray without pulmonary abnormality with regards to baseline for amiodarone surveillance. -An echocardiogram was performed this morning 09/02/2022 and interpreted independently. There is thinning of the anteroseptum. Mild concentric left ventricular hypertrophy is otherwise noted. There is a moderate-sized apical, septal, and anteroseptal wall motion abnormality with akinesis to the kinesis of the segments. The left ventricular systolic function is mildly reduced with a left ventricular ejection fraction in the range of 30-35%. Aortic valve is moderately calcified. Mild to moderate aortic valve stenosis is present with peak CW velocity just under 3 m/s. Mild mitral regurgitation is present. Grade 1 diastolic dysfunction noted. Compared to the outpatient echocardiogram performed 08/22/2022 (which had also been interpreted by the undersigned) the left anterior descending coronary artery territory wall motion abnormality is relatively unchanged. Ultrasound contrast was administered at the time of the study performed today, and the images with contrast demonstrate LVEF in the range of 30 to 35% as compared to 40 to 45% on 08/22/2022 (no contrast at that time). -Patient known to have severe three-vessel coronary heart disease at time of initial cardiac catheterization in 1989 and has not had a repeat catheterization in the meantime. -Has long standing history of WA, LAD territory scar dating back to 1989. -Recommend coronary evaluation during this hospital stay, but this is likely best performed at a tertiary center as complex PCI anticipated. After her coronary anatomy is delineated and revascularization performed if amenable, consideration will be made with regards to upgrading his device to an ICD. -Initial attempts were made to transfer the patient to [facility] since his cardiac care has been with [facility] for more than 20 years. He was accepted in transfer to [facility] by Dr. Nelson Johnson, however there is no bed availability. I then received a message from our medical case manager in the emergency department at [facility] but the patient's insurance required [facility] as the tertiary center that would be covered. I then called and discussed his case with Dr. Jadon Villatoro of cardiology at [facility] who accepted the patient in transfer, but no bed is available there either. -Patient is on chronic Coumadin for history of LV mural thrombus. He is not on aspirin due to history of past recurrent GI bleed with gastric outlet obstruction s/p antrectomy with vagotomy and Bill Akhtar II anastomosis 1997. -Will add aspirin 81 mg EC daily, along with protonix 40 mg PO daily. -Patient is on IV amiodarone infusion at 0.5 mg /min, will add oral amiodarone as well and will titrate metoprolol succinate from 50 mg daily to 75 mg daily. -Continue amlodipine 5 mg daily for now for antianginal effect (low LVEF noted), continue Rosuvastatin 40 mg daily. -Start Entresto. (2) Ischemic cardiomyopathy: Plan: - recent LUCAS. Decline in LVEF noted as summarized above compared to prior studies dating back to 2017. (3) LUCAS (dyspnea on exertion): Plan: - Patient's recent dyspnea on exertion and now arrhythmia suggest underlying progression of his coronary disease. -No angina at present. No evidence of volume overload (4) Aortic stenosis: Plan: - Mild aortic stenosis noted on recent echocardiogram, stable compared to 2020 (5) Ascending aortic aneurysm: Plan: Recent echocardiogram included aortic root measurement of 3.9, proximal ascending order diameter 4.2 cm. Previous echocardiogram studies included ascending aorta diameter of 4.6. A CT scan performed in 2018 included maximum ascending order diameter 4.4 cm. (6) Left ventricular mural thrombus: Plan: Patient with history of anterior, apical mural thrombus for which he is on chronic Coumadin. INR 2.6 on 09/01 and again on 09/02 No thrombus noted on echo today , 09/02/22. Hold Coumadin and will allow INR to trend down. We will plan for heparin bridge when INR less than 2. Plan Disposition: await transfer to [facility] pending bed availability. I called the transfer center at 9 am, to express my concerns of prioritizing his bed assignment and they are aware . Number to the unit where pt is located was provided. Case discussed with Dr Holden of Hospital service for the purpose of coordinating care. Transfer paperwork completed (a second time since the paperwork completed yesterday in the emergency room did not make it to the inpatient unit). Pacemaker interrogation data also printed a second time since that did not make it to the patient's outpatient chart. We will have a disc of the patient's echocardiogram made to provide at time of transfer. I spent a total of 64 minutes on the date of service in preparation, delivery, and documentation of the care provided to this patient, excluding any time spent in the performance of separately billed services. Admission and Anticipated Discharge Date Admission Date: September 01, 2022 Subjective Patient seen in cardiology follow-up having presented with sustained ventricular tachycardia on 09/01/2022. Patient is currently in room 109 in the first floor ICU as a telemetry overflow patient. Denies chest discomfort or shortness of breath. He is conversant and has normal cognition. Telemetry reveals sinus rhythm with atrial pacing in the 60s with occasional isolated PVCs. There has been no recurrence of the previously noted tachycardia since he had undergone cardioversion yesterday at 09/01/2022 at 1459 in the emergency department. Review of Systems Review of Systems: All systems reviewed & are unremarkable except as noted in HPI & below Cardiovascular: Additional Comments: Recent dyspnea on exertion over the last month. Presenting symptom on 09/01/2022 with his dyspnea and elevated heart rate. Physical Exam Physical Exam: Temp Pulse Resp BP Pulse Ox O2 Del Method O2 Flow Rate 36.6 C 65 16 132/84 98 Room Air 2 09/02/22 08:00 09/02/22 09:09 09/02/22 09:09 09/02/22 09:09 09/02/22 09:09 09/02/22 09:09 09/01/22 16:50 Constitutional: WD/WN, vitals as above Eyes: PERRL, conjunctivae normal, anicteric sclerae Respiratory: normal respiratory effort, lungs clear to auscultation Cardiovascular: RRR, no murmur, no edema Gastrointestinal (Abdomen): normal bowel sounds, soft, nontender, no hepatosplenomegaly Neurologic: PERRL, EOMI, accommodation nl, no face palsy, no dysarthria Results & Data Vital Signs (Past 12 Hours) Vital Signs Temp Pulse Pulse Resp BP BP Pulse Ox 09/02/22 09:09 65 16 132/84 98 09/02/22 08:29 60 16 108/74 98 09/02/22 08:00 61 09/02/22 08:00 36.6 C 09/02/22 07:01 61 20 117/73 97 09/02/22 03:11 36.5 C 70 18 115/69 99 09/02/22 00:46 60 09/01/22 23:16 36.4 C L 63 18 101/58 L 97 O2 Del Method 09/02/22 09:09 Room Air 09/02/22 08:29 Room Air 09/02/22 08:00 09/02/22 08:00 09/02/22 07:01 Room Air 09/02/22 03:11 Room Air 09/02/22 00:46 09/01/22 23:16 Room Air Laboratory Results Cardiac Enzymes 09/01/22 09/01/22 09/02/22 Range/Units 14:45 20:55 04:31 AST 23 (13-39) U/L Troponin I High Sens 4.9 1297.3 H* D 1091.4 H* (0-20) pg/ml Coagulation 09/01/22 09/02/22 Range/Units 14:45 04:31 PT 27.2 H 27.2 H (9.0-12.0) Seconds APTT 36.5 H (21.0-31.0) Seconds CBC 09/01/22 09/02/22 Range/Units 14:45 04:31 WBC 12.14 H 6.36 (4.8-10.8) K/ul RBC 4.77 4.31 L (4.70-6.10) M/uL Hgb 14.0 12.7 L (14.0-18.0) g/dl Hct 41.6 L 37.4 L (42.0-52.0) % Plt Count 268 204 (130-400) K/uL Neut # (Auto) 7.87 H 3.61 (1.40-6.50) K/uL Lymph # (Auto) 2.77 1.73 (1.2-3.4) K/uL Taliaferro # (Auto) 0.93 H 0.63 H (0.11-0.59) K/uL Eos # (Auto) 0.27 0.30 (0-0.50) K/uL Baso # (Auto) 0.15 0.08 (0-0.2) K/uL Comprehensive Metabolic Panel 09/01/22 09/02/22 Range/Units 14:45 04:31 Sodium 137 140 (136-145) mmol/L Potassium 4.2 4.1 (3.5-5.1) mmol/L Chloride 103 106 (98-107) mmol/L Carbon Dioxide 27 28 (21-32) mmol/L BUN 20 15 (6-23) mg/dl Creatinine 0.93 0.90 (0.6-1.4) mg/dl Glucose 136 H 107 H (70-99(Fasting)) mg/dl Calcium 9.1 8.8 (8.6-10.3) mg/dl AST 23 (13-39) U/L ALT 22 (7-52) U/L Alkaline Phosphatase 57 (34-104) U/L Total Protein 7.2 (6.0-8.3) gm/dl Albumin 4.4 (3.4-5.0) gm/dl Intake and Output 09/01/22 09/02/22 09/02/22 22:59 06:59 14:59 Intake Total 800 / 800 183.143 / 183.143 Output Total 400 / 1200 800 / 1200 300 / 300 Balance 400 / -400 -800 / -400 -116.857 / -116.857 Intake: IV 800 / 800 183.143 / 183.143 Amiodarone / D5w 150 mg In 100 100 / 100 ml @ 600 mls/hr IV NOW STA Rx#: [id number] Amiodarone / D5w 360 mg In 200 200 / 200 183.143 / 183.143 ml @ 0.5 MG/MIN 16.667 mls/hr IV .Q12H [place] Rx#:[id number] Sodium Chloride 0.9% 500 ml @ 500 / 500 999 mls/hr IV .Q31M STA Rx#: [id number] Output: Urine 400 / 1200 800 / 1200 300 / 300 Other: Weight 79.3 kg Weight Measurement Method Built in [facility] Diagnostic Findings EKG performed today 09/02/2022 at 5:40 AM and interpret independently: Sinus rhythm with atrial pacing at 61 bpm, [place] QRS complexes noted with incomplete right bundle branch block morphology. Nonspecific diffuse T wave flattening. Compared to the previous performed 09/01/2022 the premature ventricular contractions noted the time of the longer present. Nonspecific repolarization changes in anterior leads are slightly more prominent.
[2022-09-02] MEDS ORDERED: ASPIRIN 81 MG ECTAB PO SCH (10:00)
[2022-09-02] MEDS ORDERED: PANTOprazole 40 MG TAB PO SCH (10:00)
[2022-09-02] MEDS ORDERED: AMIODARONE 200 MG TAB PO ONE (10:08)
[2022-09-02] MEDS ORDERED: METOPROLOL SUCC 25MG EXT REL TAB PO SCH (10:15)
--- NOTE | 2022-09-02 14:46 | Electrocardiogram Report ---
Test Reason : Blood Pressure : / mmHG Vent. Rate : 061 BPM Atrial Rate : 061 BPM P-R Int : 326 ms QRS Dur : 102 ms QT Int : 454 ms P-R-T Axes : 000 -48 010 degrees QTc Int : 457 ms Atrial-paced rhythm with prolonged AV conduction Left axis deviation Nonspecific T wave abnormality Abnormal ECG When compared with ECG of 01-SEP-2022 15:43, (unconfirmed) Premature ventricular complexes are no longer Present Nonspecific T wave abnormality, worse in Anterior leads Confirmed by Adan Stanley ([id number]) on 09/02/2022 2:45:56 PM Referred By: REFERRED SELF Confirmed By:Adan Stanley
--- NOTE | 2022-09-02 15:27 | Discharge Summary ---
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 He was using a self-propelled push lawnmower while mowing the grass today and noticed shortness of breath. He checked his carotid pulse and noted it to be over 200 bpm. He asked his friend to drive him to the hospital where he was found to be with a wide-complex tachycardia with rates in the 200s. He was initially given adenosine when there was a question of whether this was SVT with aberrant conduction or not, but then thought to be more sustained ventricular tachycardia. He then underwent defibrillation x1 with successful conversion to sinus rhythm. He was also noted to have diffuse ST segment depression on the EKG once he was in sinus rhythm. A subsequent EKG later then did show resolution of the ST segment depression, but with first-degree AV block and occasional PVCs, rates in the 60s. He was started on amiodarone drip. Attempts were made to transfer the patient to tertiary care by cardiology, but there are no beds available at [place] at this time. His insurance does not allow him to go to [facility]. He is accepted at [facility] by Dr. Villatoro of the cardiology service. The reason for transfer is that he is expected to require a complex PCI and needs coronary evaluation and then likely ICD placement. I discussed his care with Dr. De Los Santos of cardiology at the time of admission. Principal Diagnosis Ventricular Tachycardia Discharge Exam Constitutional: well-appearing, no acute distress HEENT: NCAT, no conjunctival injection CV: regular rhythm, no murmur appreciated, extremities well-perfused, no LE edema Resp: CTABL, no wheezes/rales/rhonchi appreciated, no increased work of breathing MSK: no gross deformities appreciated Skin: warm, dry, no rash appreciated Neuro: alert, oriented, no focal neurologic deficit appreciated Discharge Data Allergies Allergy/AdvReac Type Severity Reaction Status Date / Time No Known Allergies Allergy Verified 09/01/22 17:31 Consultations 09/01/22 15:17 Consult Cardiology Stat Hospital Course (1) Ventricular tachycardia: (1) Ventricular tachycardia: Presented with sustained ventricular tachycardia as noted on pacer interrogation to of lasted approximately 45 minutes until successful defibrillation in the ER Possibly related to known LAD territory scar versus ischemia or worsening CAD Continue amiodarone drip Monitor on telemetry in PCU Plan for transfer to [facility] for further evaluation and likely ICD placement after possible complex PCI Keep electrolytes optimized-follow BMP and magnesium and replace as needed Continue home metoprolol (2) CAD (coronary artery disease): History of four-vessel CABG 33 years ago With recent worsening dyspnea on exertion, known ischemic cardiomyopathy with echocardiogram as an outpatient in the last 1 to 2 weeks showing EF 45-49% with anteroseptal wall motion abnormality unchanged from previous With ST depressions diffusely on ECG here shortly after defibrillation from V. tach as above Troponin peaked at 1200, trending down Echo with thinning of the anteroseptal. Mild concentric LVH. . There is a moderate-sized apical, septal, and anteroseptal wall motion abnormality with akinesis to the kinesis of the segments. EF= 30-35%. Aortic valve is moderately calcified. Mild/moderate . Mild mitral regurgitation is present. Grade 1 diastolic dysfunction noted. Continue home metoprolol, losartan, rosuvastatin Holding warfarin Aspirin added with Protonix Monitor on telemetry (3) Hx of cardiac pacemaker: Placed for sinoatrial dysfunction May need upgrade to ICD (4) Left ventricular mural thrombus: Holding chronic Coumadin for planned upcoming cardiac procedure Would give therapeutic IV heparin once INR less than 2 (5) Ascending aortic aneurysm: Recent echocardiogram in the [facility] cardiology office 1 to 2 weeks ago showed aortic root measurement 3.9 cm, proximal ascending aorta diameter 4.2 cm Follow as an outpatient Blood pressure control (6) Aortic stenosis: Mild as noted on recent outpatient echocardiogram and stable compared to 2020 Follow as an outpatient (7) Hypertension: Blood pressures are controlled Continue home amlodipine, losartan, Metoprol (2) CAD (coronary artery disease): (3) Hx of cardiac pacemaker: (4) Left ventricular mural thrombus: (5) Ascending aortic aneurysm: (6) Aortic stenosis: (7) Hypertension: Total Time Total Time Spent Total Time Spent (In Minutes): <30 Discharge Plan Discharge Items Patient Disposition: Transfer Acute Care Hospital Reason For Visit: SUSTAINED VT Discharge Diagnosis: Sustained ventricular tachycardia Condition on Discharge: Serious Activity: As commented below Exercise/Sports: Rest today Non-emergency contact: Primary Care Provider and Automobile Det[employer] Call non-emergency contact if: you have any medication questions and your symptoms worsen Follow-up/Referrals: Keith Moreno MD [Primary Care Provider] - Diet: Carb Consistent or DM2 and Low Sodium (2gm) Addtl Attending Provider Instructions: Transferred to acute care hospital (1) Ventricular tachycardia: Plan: Presented with sustained ventricular tachycardia as noted on pacer interrogation to of lasted approximately 45 minutes until successful defibrillation in the ER Possibly related to known LAD territory scar versus ischemia or worsening CAD Continue amiodarone drip Monitor on telemetry in PCU Awaiting transfer to [facility] for further evaluation and likely ICD placement after possible complex PCI Keep electrolytes optimized-follow BMP and magnesium and replace as needed Continue home metoprolol (2) CAD (coronary artery disease): Plan: History of four-vessel CABG 33 years ago With recent worsening dyspnea on exertion, known ischemic cardiomyopathy with echocardiogram as an outpatient in the last 1 to 2 weeks showing EF 45-49% with anteroseptal wall motion abnormality unchanged from previous With ST depressions diffusely on ECG here shortly after defibrillation from V. tach as above Troponin peaked at 1200, trending down Echo with thinning of the anteroseptal. Mild concentric LVH. . There is a moderate-sized apical, septal, and anteroseptal wall motion abnormality with akinesis to the kinesis of the segments. EF= 30-35%. Aortic valve is moderately calcified. Mild/moderate . Mild mitral regurgitation is present. Grade 1 diastolic dysfunction noted. Continue home metoprolol, losartan, rosuvastatin Holding warfarin Aspirin added with Protonix Monitor on telemetry (3) Hx of cardiac pacemaker: Plan: Placed for sinoatrial dysfunction May need upgrade to ICD (4) Left ventricular mural thrombus: Plan: Holding chronic Coumadin for planned upcoming cardiac procedure Would give therapeutic IV heparin once INR less than 2 (5) Ascending aortic aneurysm: Plan: Recent echocardiogram in the [facility] cardiology office 1 to 2 weeks ago showed aortic root measurement 3.9 cm, proximal ascending aorta diameter 4.2 cm Follow as an outpatient Blood pressure control (6) Aortic stenosis: Plan: Mild as noted on recent outpatient echocardiogram and stable compared to 2020 Follow as an outpatient (7) Hypertension: Plan: Blood pressures are controlled Continue home amlodipine, losartan, metoprolol Pending Studies at Discharge: No Stand-Alone Forms: [facility] Skilled Items Patient informed of condition?: Yes DNR: No Discharge Level of Care: Other Communicable Disease: No Discharge Prognosis: Stable Lines: Peripheral IV Urinary Catheter: No Medications and DC Order Prescriptions: Continued warfarin 5 mg tablet 5 mg PO [id number] Rx Instructions: TAKE THIS MED EVERY MONDAY/MONDAY/MONDAY/MONDAY/MONDAY IN EVENING amlodipine 5 mg tablet 5 mg PO QAM multivitamin [Daily Multi-Vitamin] Tablet 1 tab PO QPM rosuvastatin [Crestor] 40 mg Tablet 40 mg PO QPM levothyroxine [Synthroid] 112 mcg tablet 112 mcg PO DAILYBB metoprolol succinate [Toprol XL] 50 mg tablet extended release 24 hr 50 mg PO QPM warfarin 5 mg tablet 2.5 mg PO [id number] Rx Instructions: TAKE THIS MED EVERY & MONDAY IN THE EVENING. losartan 25 mg tablet 25 mg PO DAILY calcium carbonate-vitamin D3 [Calcium 600 + D(3)] 600 mg-5 mcg (200 unit) Tablet 1 tab PO DAILY Admission Data Admit Date/Time: 09/01/22 17:37 Attending Provider: Jose Miguel Holden Admit Provider: Milly Boucher Primary Care Provider: Keith Moreno Other Providers: Jadon DeL os Santos Supervising Physician Co-Signing Physician Notes I personally examined the patient and verified all strick[place] points of history and exam, discussed case, and agree with decision making with Dr Duffy. Feeling good. No chest pain. Laying in bed. At the time I see him we are still waiting on a bed at [facility] thereafter we were called that a bed was available. Discussed with cardiology throughout the dayinput greatly appreciated. Vitals noted, in general he is awake and alert pleasant no distress. HEENT normocephalic atraumatic mucous membranes moist. Breathing unlabored no accessory muscle use good effort. Ischemic cardiomyopathy and V. tachtransfer for evaluationprobable high risk revascularization. Stable for transfer. Otherwise as above Resident Activity Tracking Resident Involvement: Resident Care Provided Care Provided: Adult [facility] Medicine
--- NOTE | 2022-09-02 15:50 | Billing Data ---
Date of Service September 02, 2022 Coding Level of Care Code 21606 IN/OBS DISCH 30 MIN/LESS
[2022-09-02] MEDS ORDERED: AMIODARONE 200 MG TAB PO SCH (17:00)
[2022-09-02] MEDS ORDERED: METOPROLOL SUCC 50MG EXT REL TAB PO SCH (21:00)
[2022-09-03] MEDS ORDERED: VALSARTAN/SACUBITRIL 26/24MG TAB PO SCH (09:00)
== END 2022-09-02 20:13 | disposition short-term general hospital (02) | DRG 309 ==
LOC: ED 14:29 → 1E 17:37 → SUATTDRO 17:37 → 1E 19:17